=== PATIENT | female | born 1975 | race Caucasian/White ===

== ENCOUNTER 2016-10-27 22:20 | Emergency (ER) | payer SELFPAY ==
[2016-10-27 22:29] VITALS: BMI 35.1
[2016-10-28] MEDS ORDERED: KETOROLAC TROMETHAMINE 30 MG/1 ML VIAL IM ONE (00:35)
--- NOTE | 2016-10-28 00:53 | PDOC ---
[id number] No Limitations - History of Present Illness Initial Comments: 10/28/16 00:55 The patient is a 40 year old female presenting with family, with a significant past medical history of HTN and HLD, who presents to the emergency department with right shoulder pain for 2 weeks, chest pain and palpitations onset today. She describes her shoulder pain as ranging from mild to moderate, with radiation to her chest. She states that movement of the shoulder exacerbates her pain. She describes her chest pain as a pressure, ranging from mild to moderate. She denies radiation or modifying factors. She notes that she took 2 aleves today 200mg each. 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 She denies any kind of injury. The patient denies shortness of breath, headache and dizziness. Family history: Father and grandfather: CAD between ages 60-70 Allergies: None Past surgical history: Social history: No alcohol, tobacco or drug use reported <Chirag Catalan - Last Filed: 10/28/16 00:55> - General History Source: Patient Exam Limitations: No Limitations - History of Present Illness Initial Comments: 10/29/16 15:11 CORRECTION TO SCRIBE NOTE: There is no chest pressure. This is shoulder pain radiating into the chest and reproducible with arm movements. <Cresencio Interiano - Last Filed: 10/29/16 15:12> - General Chief Complaint: Chest Pain Stated Complaint: CHEST PAIN Time Seen by Provider: 10/27/16 23:27 Past History <Chirag Catalan - Last Filed: 10/28/16 00:55> - Past Medical History HTN: Yes Hypercholesterolemia: Yes - Immunization History Immunization Up to Date: Yes - Psycho/Social/Smoking Cessation Hx Anxiety: No Suicidal Ideation: No Smoking History: Never smoked Hx Alcohol Use: No Drug/Substance Use Hx: No Substance Use Type: None <Cresencio Interiano - Last Filed: 10/29/16 15:12> - Past Medical History Allergies/Adverse Reactions: Allergies Allergy/AdvReac Type Severity Reaction Status Date / Time No Known Allergies Allergy Verified 10/27/16 22:25 Home Medications: Ambulatory Orders Hydrochlorothiazide 50 mg PO DAILY 10/28/16 Naproxen [Naprosyn -] 500 mg PO BID PRN #20 tablet 10/28/16 Review of Systems - Review of Systems Able to Perform ROS?: Yes Comments:: 10/28/16 00:56 GENERAL/CONSTITUTIONAL: No fever or chills. No weakness. HEAD, EYES, EARS, NOSE AND THROAT: No change in vision. No ear pain or discharge. No sore throat. CARDIOVASCULAR: +Chest pain. No shortness of breath RESPIRATORY: No cough, wheezing, or hemoptysis. GASTROINTESTINAL: No nausea, vomiting, diarrhea or constipation. GENITOURINARY: No dysuria, frequency, or change in urination. MUSCULOSKELETAL: +Right shoulder pain. No joint or muscle swelling or pain. No neck or back pain. SKIN: No rash NEUROLOGIC: No headache, vertigo, loss of consciousness, or change in strength/ sensation. ENDOCRINE: No increased thirst. No abnormal weight change HEMATOLOGIC/LYMPHATIC: No anemia, easy bleeding, or history of blood clots. ALLERGIC/IMMUNOLOGIC: No hives or skin allergy. <Chirag Catalan - Last Filed: 10/28/16 00:55> *Physical Exam - Vital Signs Last Vital Signs Temp Pulse Resp BP Pulse Ox 98.0 F 77 18 135/96 98 10/27/16 22:25 10/27/16 22:25 10/27/16 22:25 10/27/16 22:25 10/27/16 22:25 - Physical Exam Comments: 10/28/16 00:56 GENERAL: Awake, alert, and fully oriented, in no acute distress HEAD: No signs of trauma, normocephalic, atraumatic EYES: PERRLA, EOMI, sclera anicteric, conjunctiva clear ENT: Auricles normal inspection, hearing grossly normal, nares patent, oropharynx clear without exudates. Moist mucosa NECK: Normal ROM, supple, no lymphadenopathy, JVD, or masses LUNGS: No distress, speaks full sentences, clear to auscultation bilaterally HEART: Regular rate and rhythm, normal S1 and S2, no murmurs, rubs or gallops, peripheral pulses normal and equal bilaterally. ABDOMEN: Soft, nontender, normoactive bowel sounds. No guarding, no rebound. No masses EXTREMITIES: Normal inspection, Normal range of motion, no edema. No clubbing or cyanosis. MUSCULOSKELETAL: +Tenderness to palpation right paraspinal neck and right medial portion of the scapula and anterior right shoulder and anterior axilla. Some tenderness to palpation along the sternum. Decreased range of motion of the right shoulder. NEUROLOGICAL: Cranial nerves II through XII grossly intact. Normal speech, normal gait, no focal sensorimotor deficits SKIN: Warm, Dry, normal turgor, no rashes or lesions noted. <Chirag Catalan - Last Filed: 10/28/16 00:55> - Vital Signs Last Vital Signs Temp Pulse Resp BP Pulse Ox 98.0 F 77 18 135/96 98 10/27/16 22:25 10/27/16 22:25 10/27/16 22:25 10/27/16 22:25 10/27/16 22:25 <Cresencio Interiano - Last Filed: 10/29/16 15:12> Heart Score/ECG Review - History History: Slightly suspicious - Electrocardiogram EKG: Normal - Age Age: </= 45 - Risk Factors Risk Factors Heart Score: Yes Hx Hypercholesterolemia, Yes Hx Hypertension Based on the list above the patient has:: 1-2 risk factors #1 ECG reviewed & interpreted by me at: 00:40 10/28/16 00:53 NSR 66 T wave flat III, no std/kevan, normal axis, normal intervals, QTC 440 msec <Cresencio Interiano - Last Filed: 10/29/16 15:12> ED Treatment Course - LABORATORY CBC & Chemistry Diagram: 10/28/16 00:46 10/28/16 00:46 <Chirag Catalan - Last Filed: 10/28/16 00:55> - LABORATORY CBC & Chemistry Diagram: 10/28/16 00:46 10/28/16 00:46 - RADIOLOGY Radiology Studies Ordered: Category Date Time Status SHOULDER-RIGHT [RAD] Stat Radiology 10/28/16 00:35 Ordered <Cresencio Interiano - Last Filed: 10/29/16 15:12> Medical Decision Making - Medical Decision Making 10/28/16 00:49 A portion of this note was documented by scribe services under my direction. I have reviewed the details of the note, within reason, and agree with the documentation with the following case summary and management plan written by me. Patient treated in the ED. Nursing notes are reviewed and incorporated into the medical decision-making. Vital signs reviewed. Peripheral IV access obtained by the nurse, laboratory studies are drawn and sent, reviewed and interpreted by myself. 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 Patient reports that movement of her right shoulder exacerbates the pain. She denies short of breath, diaphoresis, nausea, vomiting. Patient was concerned for potential heart has her father had a heart attack in his 70s. Patient's physical exam is consistent with musculoskeletal. EKG is normal. We' ll trial Toradol and reassess. We'll give her referral to an orthopedist. 10/28/16 02:01 CBC, BMP 10/28/16 00:46 10/28/16 00:46 CMP Sodium 140 mmol/L (136-145) 10/28/16 00:46 Potassium 3.1 mmol/L (3.5-5.1) L 10/28/16 00:46 Chloride 99 mmol/L (98-107) 10/28/16 00:46 Carbon Dioxide 31 mmol/L (21-32) 10/28/16 00:46 Anion Gap 10 (8-16) 10/28/16 00:46 BUN 18 mg/dL (7-18) 10/28/16 00:46 Creatinine 0.8 mg/dL (0.55-1.02) 10/28/16 00:46 Creat Clearance w eGFR > 60 (>60) 10/28/16 00:46 Random Glucose 97 mg/dL (74-106) 10/28/16 00:46 Calcium 9.0 mg/dL (8.5-10.1) 10/28/16 00:46 Total Bilirubin 0.2 mg/dL (0.2-1.0) 10/28/16 00:46 AST 20 U/L (15-37) 10/28/16 00:46 ALT 32 U/L (12-78) 10/28/16 00:46 Alkaline Phosphatase 103 U/L (45-117) 10/28/16 00:46 Creatine Kinase 102 IU/L (26-192) 10/28/16 00:46 Troponin I < 0.02 ng/ml (0.00-0.05) 10/28/16 00:46 Total Protein 7.6 g/dl (6.4-8.2) 10/28/16 00:46 Albumin 3.9 g/dl (3.4-5.0) 10/28/16 00:46 Serum , Qual Negative 10/28/16 00:46 Oral potassium repletion ordered. Pt reports feeling better after IM toradol. Awaiting Xray of R shoulder. Case signed out to Dr. Ferrell for further management and disposition. However, the patient is able to be discharged with ortho follow up. The patient and patient's daughter is at bedside and agrees with plan. <Cresencio Interiano - Last Filed: 10/29/16 15:12> *DC/Admit/Observation/Transfer - Attestations Scribe Attestion: 10/28/16 00:56 Documentation prepared by Chirag Catalan, acting as manager medical writing for Cresencio Interiano MD <Chirag Catalan - Last Filed: 10/28/16 00:55> - Discharge Dispostion Admit: No <Cresencio Interiano - Last Filed: 10/29/16 15:12> Diagnosis at time of Disposition: Shoulder pain, right Qualifiers: Chronicity: acute Qualified Code(s): M25.511 - Pain in right shoulder - Discharge Dispostion Disposition: TRANSFER ACUTE CARE/OTHER HOSP Condition at time of disposition: Improved - Prescriptions Prescriptions: Naproxen [Naprosyn -] 500 mg PO BID PRN #20 tablet PRN Reason: Shoulder Pain - Referrals Referrals: Hipolito Spence MD [Staff Physician] - - Patient Instructions Printed Discharge Instructions: DI for Shoulder Pain Additional Instructions: Take 500 mg naproxen every 12 hours as needed for pain. At this time, I do not think that this is her heart and I suspect that this is more like her shoulder. This may be the results because of repetitive motion of your right shoulder. It is important to take it easy on her right shoulder. Take the medication as prescribed. You will likely benefit from physical therapy. Please call and schedule appointment with an orthopedist. Print Language: ARABIC
[2016-10-28] MEDS ORDERED: KETOROLAC TROMETHAMINE 30 MG/1 ML VIAL ONE (00:58)
[2016-10-28 01:00] LABS: BASOPHIL 0.4 % (0-2.0); EOSINOPHIL 2.3 % (0-4.5); MCH 30.7 pg (25.7-33.7); MCHC 33.7 g/dl (32.0-36.0); MEAN CELL VOLUME 91.2 fl (80-96); MEAN PLT VOLUME 8.3 fl (7.5-11.1); NEUTROPHILS 54.3 % (42.8-82.8); PLATELET COUNT 282 K/MM3 (134-434); RDW 12.8 % (11.6-15.6); WHITE BLOOD COUNT 6.9 K/mm3 (4.0-10.0)
[2016-10-28 01:20] LABS: ALBUMIN 3.9 g/dl (3.4-5.0); ANION GAP 10 (8-16); BILIRUBIN,TOTAL 0.2 mg/dL (0.2-1.0); CO2 31 mmol/L (21-32); CREATININE 0.8 mg/dL (0.55-1.02); GLUCOSE,RANDOM 97 mg/dL (74-106); SGOT/AST 20 U/L (15-37); SGPT/ALT 32 U/L (12-78); TOT PROT 7.6 g/dl (6.4-8.2)
[2016-10-28 01:23] LABS: ALK PHOS 103 U/L (45-117); TROPONIN I < 0.02 ng/ml (0.00-0.05)
[2016-10-28] MEDS ORDERED: POTASSIUM CHLORIDE TABS 20 MEQ TABLET.ER (FP) PO ONE ×2 (01:46→02:28)
[2016-10-28 03:39] VITALS: BP 130/88; PULSE 72; TEMP 98.2
--- NOTE | 2016-10-28 16:13 | EKG ---
Test Reason : Blood Pressure : / mmHG Vent. Rate : 066 BPM Atrial Rate : 066 BPM P-R Int : 202 ms QRS Dur : 088 ms QT Int : 420 ms P-R-T Axes : 043 060 045 degrees QTc Int : 440 ms NORMAL SINUS RHYTHM NORMAL ECG NO PREVIOUS ECGS AVAILABLE Confirmed by ANJUM VELASQUEZ MD ([id number]) on 10/28/2016 4:13:06 PM Referred By: Confirmed By:ANJUM VELASQUEZ MD
== END 2016-10-28 03:39 | disposition short-term general hospital (02) ==
LOC: JER 22:20
PROC: 3E0233Z Introduction of Anti-inflammatory into Muscle, Percutaneous Approach (ICD-10-PCS; principal; 2016-10-27)
DX: M25.511 Pain in right shoulder (principal); I10 Essential (primary) hypertension; E78.00 Pure hypercholesterolemia, unspecified
CPT/HCPCS: 36415; 73030-TC-RT; 80053; 82550; 84484; 84703; 85025; 93005; 93010; 99282-25

== ENCOUNTER 2017-03-16 22:12 | Emergency (ER) | payer SELFPAY ==
[2017-03-16 22:31] VITALS: BP 148/97; PULSE 57; TEMP 98.1; BMI 30.7
[2017-03-17] MEDS ORDERED: LIDOCAINE 1%/EPI 1:100000 (20 ML MULTI DOSE VIAL) INF ONE (00:20)
--- NOTE | 2017-03-17 00:30 | PDOC ---
History of Present Illness - General Chief Complaint: Abscess Boil Stated Complaint: PAIN, ACUTE Time Seen by Provider: 03/16/17 23:55 History Source: Patient, Family Exam Limitations: Language Barrier - History of Present Illness Initial Comments: 03/17/17 00:23 41yo Female patient w/ PmHx: HTN, Boils, presents to ED c/o boil to upper back x 1 month, worsened this past week. Patient states approximately 3 years ago, experience similar episode and has boil "removed" but returned in same spot. She denies fever, CP, Diff breathing, rash, or any other complaints at this time. Timing/Duration: reports: constant, getting worse Severity: Yes: moderate Location: reports: torso Respiratory Risk Factors: denies: no cause identified, exposure to illness, exposure to allergen, foods, insect bite, insect sting, medications, pollen, soaps, other Modifying Factors: worse with: antihistamine, calamine lotion, prednisone, scratching, topical steriods, other Associated Symptoms: denies: denies symptoms, blisters, change in skin texture, edema, fever, flushing, headache, hives, jaundice, malaise, nasal congestion, numbness, pallor, paresthesia, petechiae, rash, sore throat, swelling/mass/lumps , tingling, other Past History - Past Medical History Allergies/Adverse Reactions: Allergies Allergy/AdvReac Type Severity Reaction Status Date / Time No Known Allergies Allergy Verified 03/16/17 22:29 Home Medications: Ambulatory Orders Hydrochlorothiazide 50 mg PO DAILY 10/28/16 Naproxen [Naprosyn -] 500 mg PO BID PRN #20 tablet 10/28/16 Cephalexin Monohydrate [Keflex -] 500 mg PO BID #20 capsule 03/17/17 Oxycodone HCl/Acetaminophen [Endocet 5-325 Tablet] 1 each PO Q6H PRN #20 tablet MDD 4 tab 03/17/17 Sulfamethoxazole/Trimethoprim [Bactrim Ds -] 1 tab PO BID #14 tablet 03/17/17 HTN: Yes Hypercholesterolemia: Yes - Surgical History Gastric Stapling: Yes (Gastric bypass) - Immunization History Immunization Up to Date: Yes - Psycho/Social/Smoking Cessation Hx Anxiety: No Suicidal Ideation: No Smoking History: Never smoked Have you smoked in the past 12 months: No Information on smoking cessation initiated: No Hx Alcohol Use: No Drug/Substance Use Hx: No Substance Use Type: None Review of Systems - Review of Systems Able to Perform ROS?: Yes Is the patient limited Czech proficient: No Integumentary: Yes: Lumps All Other Systems: Reviewed and Negative *Physical Exam - Vital Signs Last Vital Signs Temp Pulse Resp BP Pulse Ox 98.1 F 57 L 18 148/97 99 03/16/17 22:29 03/16/17 22:29 03/16/17 22:29 03/16/17 22:29 03/16/17 22:29 - Physical Exam General Appearance: Yes: Nourished, Appropriately Dressed. No: Apparent Distress, Mild Distress, Moderate Distress, Severe Distress Respiratory/Chest: positive: Lungs Clear, Normal Breath Sounds. negative: Chest Tender, Respiratory Distress, Accessory Muscle Use, Labored Respiration, Rapid RR, Stridor, Wheezing Cardiovascular: positive: Regular Rhythm, Regular Rate Musculoskeletal: positive: Normal Inspection. negative: CVA Tenderness Extremity: positive: Normal Capillary Refill, Normal Inspection, Normal Range of Motion. negative: Pedal Edema, Swelling, Calf Tenderness, Erythema, Inflammation Integumentary: positive: Normal Color, Dry, Warm, Other (Boil to mid upper back. No erythema, non-fluctuant. + tenderness. Soft to palpation.) Neurologic: positive: principal strategist II-XII NML intact, Fully Oriented, Alert, Normal Mood/ Affect, Normal Response, Motor Strength 5/5 Procedures - Incision and Drainage I&D Site: Right: Other (Upper back) Betadine cleansed: Yes Anesthesia: 1% Lidocaine Volume(ml): 3 Blade Size: 11 Attempts: 1 Iodinated Packin/4 in Plain Packing: No Complications: none Dressing: Yes Progress: 03/17/17 01:43 Patient tolerated procedure poorly. *DC/Admit/Observation/Transfer Diagnosis at time of Disposition: Abscess of upper back excluding scapular region - Discharge Dispostion Disposition: HOME Condition at time of disposition: Improved Admit: No - Prescriptions Prescriptions: Sulfamethoxazole/Trimethoprim [Bactrim Ds -] 1 tab PO BID #14 tablet Oxycodone HCl/Acetaminophen [Endocet 5-325 Tablet] 1 each PO Q6H PRN #20 tablet MDD 4 tab PRN Reason: Severe Pain Cephalexin Monohydrate [Keflex -] 500 mg PO BID #20 capsule - Referrals Referrals: Antwon Archer MD [Staff Physician] - - Patient Instructions Printed Discharge Instructions: DI for Incision and Drainage of a Skin Abscess Additional Instructions: Follow up with Dr. Archer (Surgery) regarding todays visit. Call to schedule appointment. Take medications as prescribed. Endocet for severe pain. Do not drink alcohol, drive, or operate heavy machinery while taking Endocet. Return in 2 days for removal of wick or follow up with your primary care provider as discussed with you and your daughter. Print Language: KISWAHILI
[2017-03-17] MEDS ORDERED: LIDOCAINE HCL 1%, 10 MG/ML (20ML VIAL) ONE (01:06)
[2017-03-17] MEDS ORDERED: LIDOCAINE HCL 1%, 10 MG/ML (50 mL VIAL) INF ONE (01:07)
--- NOTE | 2017-03-17 01:43 | PDOC ---
*Physical Exam - Vital Signs Last Vital Signs Temp Pulse Resp BP Pulse Ox 98.1 F 57 L 18 148/97 99 03/16/17 22:29 03/16/17 22:29 03/16/17 22:29 03/16/17 22:29 03/16/17 22:29 ED Treatment Course - Medications Given in the ED: ED Medications Discontinued Medications Generic Name Dose Route Start Last Admin Trade Name Freq PRN Reason Stop Dose Admin Lidocaine HCl 20 ml 03/17/17 01:07 03/17/17 01:13 Xylocaine 1% INF 03/17/17 01:08 20 ml ONCE ONE Administration Lidocaine/Epinephrine 20 ml 03/17/17 00:20 03/17/17 01:07 Xylocaine 1%-Epi 1:100,000 INF 03/17/17 00:21 1 bottle ONCE ONE Administration Medical Decision Making - Medical Decision Making 03/17/17 01:42 agree with care from IT APPLICATION DEVELOPMENT MANAGER Taiwo *DC/Admit/Observation/Transfer Diagnosis at time of Disposition: Abscess of upper back excluding scapular region - Prescriptions Prescriptions: Sulfamethoxazole/Trimethoprim [Bactrim Ds -] 1 tab PO BID #14 tablet Oxycodone HCl/Acetaminophen [Endocet 5-325 Tablet] 1 each PO Q6H PRN #20 tablet MDD 4 tab PRN Reason: Severe Pain Cephalexin Monohydrate [Keflex -] 500 mg PO BID #20 capsule - Referrals Referrals: Antwon Archer MD [Staff Physician] - - Patient Instructions Printed Discharge Instructions: DI for Incision and Drainage of a Skin Abscess Additional Instructions: Follow up with Dr. Archer (Surgery) regarding todays visit. Call to schedule appointment. Take medications as prescribed. Endocet for severe pain. Do not drink alcohol, drive, or operate heavy machinery while taking Endocet. Return in 2 days for removal of wick or follow up with your primary care provider as discussed with you and your daughter. Print Language: SINHALA
[2017-03-17] MEDS ORDERED: CEPHALEXIN MONOHYDRATE 500 MG CAPSULE (UD) PO ONE (01:49)
[2017-03-17] MEDS ORDERED: IBUPROFEN 600 MG TABLET (FP) PO ONE ×2 (01:49→01:57)
[2017-03-17] MEDS ORDERED: SULFAMETHOXAZOLE/TRIMETHOPRIM 800MG/160MG D.S. TABLET PO ONE (01:49)
[2017-03-17] MEDS ORDERED: CEPHALEXIN MONOHYDRATE 250 MG CAPSULE (FP) ONE (01:56)
[2017-03-17] MEDS ORDERED: SULFAMETHOXAZOLE/TRIMETHOPRIM 800MG/160MG D.S. TABLET ONE (01:56)
== END 2017-03-17 02:09 ==
LOC: JER 22:12
CPT/HCPCS: 99281-25

== ENCOUNTER 2017-03-18 22:40 | Emergency (ER) | payer SELFPAY ==
[2017-03-18 22:53] VITALS: BP 130/82; PULSE 71; TEMP 98.4; BMI 30.7
--- NOTE | 2017-03-18 23:34 | PDOC ---
History of Present Illness - General Chief Complaint: Revisit,Wound Recheck Stated Complaint: ER REVIST Time Seen by Provider: 03/18/17 23:17 History Source: Patient Exam Limitations: No Limitations - History of Present Illness Initial Comments: 03/18/17 23:35 41-year-old female with no medical history presents to the emergency department for wound check to the upper back after an I&D 2 days ago. Patient denies any fever, chills, nausea/vomiting, pain, increased drainage from I&D site. Patient denies any other complaints. Severity: mild Past History - Past Medical History Allergies/Adverse Reactions: Allergies Allergy/AdvReac Type Severity Reaction Status Date / Time No Known Allergies Allergy Verified 03/18/17 22:53 Home Medications: Ambulatory Orders Hydrochlorothiazide 50 mg PO DAILY 10/28/16 Naproxen [Naprosyn -] 500 mg PO BID PRN #20 tablet 10/28/16 Cephalexin Monohydrate [Keflex -] 500 mg PO BID #20 capsule 03/17/17 Oxycodone HCl/Acetaminophen [Endocet 5-325 Tablet] 1 each PO Q6H PRN #20 tablet MDD 4 tab 03/17/17 Sulfamethoxazole/Trimethoprim [Bactrim Ds -] 1 tab PO BID #14 tablet 03/17/17 HTN: Yes Hypercholesterolemia: Yes - Surgical History Gastric Stapling: Yes (Gastric bypass) - Immunization History Immunization Up to Date: Yes - Psycho/Social/Smoking Cessation Hx Anxiety: No Suicidal Ideation: No Smoking History: Never smoked Have you smoked in the past 12 months: No Information on smoking cessation initiated: No Hx Alcohol Use: No Drug/Substance Use Hx: No Substance Use Type: None Review of Systems - Review of Systems Able to Perform ROS?: Yes Comments:: 03/18/17 23:36 CONSTITUTIONAL: Absent: fever, chills, diaphoresis, generalized weakness, malaise, loss of appetite RESPIRATORY: Absent: cough, shortness of breath, dyspnea with exertion, orthopnea, wheezing, stridor, hemoptysis GASTROINTESTINAL: Absent: abdominal pain, abdominal distension, nausea, vomiting, diarrhea, constipation, melena, hematochezia MUSCULOSKELETAL: Absent: myalgia, arthralgia, joint swelling SKIN: Upper left back; wound checl I&D Absent: rash, itching, pallor HEMATOLOGIC/IMMUNOLOGIC: Absent: easy bleeding, easy bruising, lymphadenopathy, frequent infections Is the patient limited Bur[place]ian proficient: No *Physical Exam - Vital Signs Last Vital Signs Temp Pulse Resp BP Pulse Ox 98.4 F 71 18 130/82 98 03/18/17 22:50 03/18/17 22:50 03/18/17 22:50 03/18/17 22:50 03/18/17 22:50 - Physical Exam Comments: 03/18/17 23:36 GENERAL: Well developed, well nourished. Awake and alert. No acute distress. CARDIOVASCULAR: Regular rate and rhythm. No murmurs, rubs, or gallops. Distal pulses are 2+ and symmetric. PULMONARY: No evidence of respiratory distress. Lungs clear to auscultation bilaterally. No wheezing, rales or rhonchi. ABDOMINAL: Soft. Non-tender. Non-distended. No rebound or guarding. No organomegaly. Normoactive bowel sounds. MUSCULOSKELETAL Normal range of motion at all joints. No bony deformities or tenderness. No CVA tenderness. EXTREMITIES: No cyanosis. No clubbing. No edema. No calf tenderness. SKIN: 2cm horizontal incision with scant dry drainage Warm and dry. Normal capillary refill. No rashes. No jaundice. *DC/Admit/Observation/Transfer Diagnosis at time of Disposition: Wound check, abscess - Discharge Dispostion Disposition: HOME Condition at time of disposition: Stable Admit: No - Referrals Referrals: Deng Rees MD [Staff Physician] - - Patient Instructions Printed Discharge Instructions: Boil Additional Instructions: Warm compress Continue your antibiotics Return roxanne the ER for severe/persistent/worsening symptoms
== END 2017-03-18 23:53 | disposition home or self-care (01) ==
LOC: SUPCPDRO 22:40 → JER 22:40
DX: Z09 Encounter for follow-up examination after completed treatment for conditions other than malignant neoplasm (principal); L02.212 Cutaneous abscess of back [any part, except buttock and flank]; I10 Essential (primary) hypertension; E78.00 Pure hypercholesterolemia, unspecified
CPT/HCPCS: 99281-25

== ENCOUNTER 2017-03-21 13:49 | Emergency (ER) | payer SELFPAY ==
[2017-03-21 14:02] VITALS: BMI 29.9
--- NOTE | 2017-03-21 14:21 | PDOC ---
History of Present Illness - General Chief Complaint: Pain Stated Complaint: ABD PAIN Time Seen by Provider: 03/21/17 14:17 Past History - Past Medical History Allergies/Adverse Reactions: Allergies Allergy/AdvReac Type Severity Reaction Status Date / Time No Known Allergies Allergy Verified 03/21/17 13:54 Home Medications: Ambulatory Orders Hydrochlorothiazide 50 mg PO DAILY 10/28/16 Naproxen [Naprosyn -] 500 mg PO BID PRN #20 tablet 10/28/16 Cephalexin Monohydrate [Keflex -] 500 mg PO BID #20 capsule 03/17/17 Oxycodone HCl/Acetaminophen [Endocet 5-325 Tablet] 1 each PO Q6H PRN #20 tablet MDD 4 tab 03/17/17 Sulfamethoxazole/Trimethoprim [Bactrim Ds -] 1 tab PO BID #14 tablet 03/17/17 HTN: Yes Hypercholesterolemia: Yes - Surgical History Gastric Stapling: Yes (Gastric bypass) - Immunization History Immunization Up to Date: Yes - Psycho/Social/Smoking Cessation Hx Anxiety: No Suicidal Ideation: No Smoking History: Never smoked Have you smoked in the past 12 months: No Information on smoking cessation initiated: No Hx Alcohol Use: No Drug/Substance Use Hx: No Substance Use Type: None *Physical Exam - Vital Signs Last Vital Signs Temp Pulse Resp BP Pulse Ox 98.4 F 59 L 20 138/96 99 03/21/17 13:54 03/21/17 13:54 03/21/17 13:54 03/21/17 13:54 03/21/17 13:54 *DC/Admit/Observation/Transfer - Attestations Physician Attestion: 03/21/17 14:21 I, Dr. Wesley Kumar, attest that this document has been prepared under my direction and personally reviewed by me in its entirety. I further attest, that it accurately reflects all work, treatment, procedures and medical decision -making performed by me.
--- NOTE | 2017-03-21 15:57 | PDOC ---
History of Present Illness - General Chief Complaint: Pain Stated Complaint: ABD PAIN Time Seen by Provider: 03/21/17 14:17 - History of Present Illness Initial Comments: 03/21/17 16:22 Ms. Lorelei Young is a 41 year old female with a significant past medical history of gastric bypass who presents to the emergency department with a several hour history of severe abdominal pain. She says it began at noon and feels like someone is pressing or stabbing to her Right side as well as both shoulder blades. The patient denies chest pain, shortness of breath, headache and dizziness. Denies fever, chills, nausea, vomit, diarrhea and constipation. Denies dysuria, frequency, urgency and hematuria. Allergies: NKDA Past surgical history: Gastric bypass Social history: Denies Past History - Past Medical History Allergies/Adverse Reactions: Allergies Allergy/AdvReac Type Severity Reaction Status Date / Time No Known Allergies Allergy Verified 03/21/17 13:54 Home Medications: Ambulatory Orders Cephalexin Monohydrate [Keflex -] 500 mg PO BID #20 capsule 03/17/17 Sulfamethoxazole/Trimethoprim [Bactrim Ds -] 1 tab PO BID #14 tablet 03/17/17 Acetaminophen with Codeine [Acetaminophen-Codeine Solution] 5 ml PO ASDIR Ondansetron HCl [Zofran] 4 mg SL PRN #20 tablet 03/21/17 Oxycodone HCl/Acetaminophen [Percocet 5-325 mg Tablet] 1 tab PO Q6H #20 tablet MDD 4 tabs 03/21/17 HTN: Yes Hypercholesterolemia: Yes - Surgical History Gastric Stapling: Yes (Gastric bypass) - Immunization History Immunization Up to Date: Yes - Psycho/Social/Smoking Cessation Hx Anxiety: No Suicidal Ideation: No Smoking History: Never smoked Have you smoked in the past 12 months: No Information on smoking cessation initiated: No Hx Alcohol Use: No Drug/Substance Use Hx: No Substance Use Type: None Review of Systems - Review of Systems Comments:: 03/21/17 16:22 GENERAL/CONSTITUTIONAL: No fever or chills. No weakness. HEAD, EYES, EARS, NOSE AND THROAT: No change in vision. No ear pain or discharge. No sore throat. CARDIOVASCULAR: No chest pain or shortness of breath RESPIRATORY: No cough, wheezing, or hemoptysis. GASTROINTESTINAL: +Severe abdominal pain reported. No nausea, vomiting, diarrhea or constipation. GENITOURINARY: No dysuria, frequency, or change in urination. MUSCULOSKELETAL: No joint or muscle swelling or pain. No neck or back pain. SKIN: No rash NEUROLOGIC: No headache, vertigo, loss of consciousness, or change in strength/ sensation. ENDOCRINE: No increased thirst. No abnormal weight change HEMATOLOGIC/LYMPHATIC: No anemia, easy bleeding, or history of blood clots. ALLERGIC/IMMUNOLOGIC: No hives or skin allergy. *Physical Exam - Vital Signs Last Vital Signs Temp Pulse Resp BP Pulse Ox 98.4 F 59 L 20 138/96 99 03/21/17 13:54 03/21/17 13:54 03/21/17 13:54 03/21/17 13:54 03/21/17 13:54 - Physical Exam Comments: 03/21/17 16:22 GENERAL: Awake, alert, and fully oriented, in no acute distress HEAD: No signs of trauma, normocephalic, atraumatic EYES: PERRLA, EOMI, sclera anicteric, conjunctiva clear ENT: Auricles normal inspection, hearing grossly normal, nares patent, oropharynx clear without exudates. Moist mucosa NECK: Normal ROM, supple, no lymphadenopathy, JVD, or masses LUNGS: No distress, speaks full sentences, clear to auscultation bilaterally HEART: Regular rate and rhythm, normal S1 and S2, no murmurs, rubs or gallops, peripheral pulses normal and equal bilaterally. ABDOMEN: +Positive marcelino sign, rebound tenderness noted to abdomen, pain in R upper and lower quadrants. Soft, normoactive bowel sounds. No guarding. No masses EXTREMITIES: Normal inspection, Normal range of motion, no edema. No clubbing or cyanosis. NEUROLOGICAL: Cranial nerves II through XII grossly intact. Normal speech, normal gait, no focal sensorimotor deficits SKIN: Warm, Dry, normal turgor, no rashes or lesions noted. ED Treatment Course - LABORATORY CBC & Chemistry Diagram: 03/21/17 16:10 03/21/17 16:10 Medical Decision Making - Medical Decision Making 03/21/17 16:31 Patient presents in acute pain and is visibly uncomfortable writhing on bed. Concern for gall vs. kidney stone. *DC/Admit/Observation/Transfer Diagnosis at time of Disposition: Cholecystitis, Abscess of upper back excluding scapular region - Discharge Dispostion Disposition: HOME - Referrals Referrals: Chon Burgos MD [Staff Physician] - - Patient Instructions Printed Discharge Instructions: DI for Gallstones Additional Instructions: Please return if pain uncontrollable with prescription meds. - Attestations Physician Attestion: 03/21/17 16:35 I, Dr. Levi Lopez, attest that this document has been prepared under my direction and personally reviewed by me in its entirety. I further attest, that it accurately reflects all work, treatment, procedures and medical decision -making performed by me.
--- NOTE | 2017-03-21 16:13 | PDOC ---
Attending Attestation - Resident Resident Name: Levi Lopez - ED Attending Attestation I have performed the following: I have examined & evaluated the patient, The case was reviewed & discussed with the resident, I agree w/resident's findings & plan, Exceptions are as noted - HPI HPI: 03/21/17 18:32 41-year-old female with a history of a gastric bypass in the past year presents with epigastric pain. She denies fever or vomiting but does have pain that radiates to her scapular area associated with some nausea. She denies any chest pain or shortness of breath - Physicial Exam PE: 03/21/17 18:33 Slightly overweight 41-year-old female presents with epigastric pain that started today. HEENT is within normal limits Lungs are clear to auscultation bilaterally CVS regular rate and rhythm S1, S2, no gallops, no rubs Abdomen - there is epigastric tenderness to palpation. Her lower quadrants are unremarkable Extremities full range of motion, no deformity Skin warm, dry. No evidence of cellulitis. There is a small pustule in her mid upper brought back. It appears to have had a recent incision Neuro-no gross focal neural deficits - Medical Decision Making 03/21/17 18:37 41-year-old female who had all abdominal ultrasound that showed evidence of cholecystitis. At this time. She has no fever, her CBC and chemistries are essentially unremarkable. She is not vomiting. We'll discuss with her the option for outpatient follow-up will be sent home with medications. Case discussed with the resident and the plan is to send her home.
[2017-03-21] MEDS ORDERED: morphine CARPU-JECT 4 MG/1 ML DISP.SYRIN IVPUSH ONE (16:15)
[2017-03-21 16:32] LABS: BASOPHIL 0.3 % (0-2.0); EOSINOPHIL 0.3 % (0-4.5); MCHC 33.4 g/dl (32.0-36.0); MEAN CELL VOLUME 92.7 fl (80-96); MEAN PLT VOLUME 8.3 fl (7.5-11.1); NEUTROPHILS 82.5 % (42.8-82.8); PLATELET COUNT 298 K/MM3 (134-434); RDW 13.3 % (11.6-15.6)
[2017-03-21] MEDS ORDERED: morphine CARPU-JECT 10 MG/1 ML DISP.SYRIN ONE (16:36)
[2017-03-21 17:02] LABS: ALBUMIN 3.5 g/dl (3.4-5.0); ANION GAP 9 (8-16); CALCIUM 9.4 mg/dL (8.5-10.1); CO2 28 mmol/L (21-32); CREATININE 0.7 mg/dL (0.55-1.02); GLUCOSE,RANDOM 82 mg/dL (74-106); SGOT/AST 60 U/L (15-37); SGPT/ALT 61 U/L (12-78)
[2017-03-21 17:04] LABS: ALK PHOS 87 U/L (45-117); BILIRUBIN,TOTAL 0.5 mg/dL (0.2-1.0); TOT PROT 7.9 g/dl (6.4-8.2)
[2017-03-21 17:07] LABS: URINE APPEARANCE SLCLOUDY; URINE BILIRUBIN NEGATIVE (NEGATIVE); URINE BLOOD NEGATIVE (NEGATIVE); URINE COLOR YELLOW; URINE GLUCOSE (UA) NEGATIVE (NEGATIVE); URINE KETONE 1+ (NEGATIVE); URINE LEUK ESTERASE NEGATIVE (NEGATIVE); URINE NITRITE NEGATIVE (NEGATIVE); URINE PROTEIN NEGATIVE (NEGATIVE); URINE UROBILINOGEN NEGATIVE mg/dL (0.2-1.0)
[2017-03-21 19:33] VITALS: BP 131/78; PULSE 62; TEMP 97.9
--- NOTE | 2017-03-22 19:05 | EKG ---
Test Reason : Blood Pressure : / mmHG Vent. Rate : 059 BPM Atrial Rate : 059 BPM P-R Int : 168 ms QRS Dur : 086 ms QT Int : 428 ms P-R-T Axes : 033 057 038 degrees QTc Int : 423 ms SINUS BRADYCARDIA OTHERWISE NORMAL ECG WHEN COMPARED WITH ECG OF 28-OCT-2016 00:39, T WAVES ARE NOW INVERTED IN V2 REPEAT EKG IF CLINICALLY INDICATED Confirmed by VITALIY HUNTER MD ([id number] on 03/22/2017 7:05:22 PM Referred By: Confirmed By:VITALIY HUNTER MD
== END 2017-03-21 19:32 | disposition home or self-care (01) ==
LOC: JER 13:49
PROC: 3E033NZ Introduction of Analgesics, Hypnotics, Sedatives into Peripheral Vein, Percutaneous Approach (ICD-10-PCS; principal; 2017-03-21)
DX: K80.10 Calculus of gallbladder with chronic cholecystitis without obstruction (principal); Z98.84 Bariatric surgery status
CPT/HCPCS: 36415; 76705-TC; 80053; 81003; 83690; 84703; 85025; 93005; 93010; 99283-25

== ENCOUNTER 2017-04-04 10:55 | Inpatient (IN) | payer OTHER ==
[2017-04-04 11:17] VITALS: BMI 29.9
[2017-04-04 11:58] LABS: URINE APPEARANCE SLCLOUDY; URINE BILIRUBIN NEGATIVE (NEGATIVE); URINE BLOOD NEGATIVE (NEGATIVE); URINE COLOR DKYELLOW; URINE GLUCOSE (UA) NEGATIVE (NEGATIVE); URINE KETONE NEGATIVE (NEGATIVE); URINE LEUK ESTERASE NEGATIVE (NEGATIVE); URINE NITRITE NEGATIVE (NEGATIVE); URINE PROTEIN NEGATIVE (NEGATIVE); URINE UROBILINOGEN NEGATIVE mg/dL (0.2-1.0)
--- NOTE | 2017-04-04 12:08 | PDOC ---
History of Present Illness - General Chief Complaint: Pain, Acute Stated Complaint: BACK PAIN Time Seen by Provider: 04/04/17 11:27 History Source: Patient Exam Limitations: No Limitations - History of Present Illness Initial Comments: 04/04/17 12:08 CHIEF COMPLAINT: Abdominal pain HISTORY OF PRESENT ILLNESS: This is a 41 year old female with a history of HTN, HLD, and gastric bypass surgery at [facility] in December of this year, initially seen here on 03/21 for RUQ pain and syncope. At that time, she had an ultrasound which was interpreted as choleystitis. The note from this visit indicates that because she had a normal CBC and LFTs at that time and was not vomiting, she was discharged for outpatient followup. She returns today with worsening pain not controlled with oxycodone, inability to eat, nausea, and subjective fevers/chills. Of note, the patient was treated with Bactrim/Keflex for back abscess just prior to her initial presentation. REVIEW OF SYSTEMS: GENERAL/CONSTITUTIONAL: Subjective fevers/chills. HEAD, EYES, EARS, NOSE AND THROAT: No change in vision. No ear pain or discharge. No sore throat. CARDIOVASCULAR: No chest pain or palpitations. RESPIRATORY: No cough, wheezing, or shortness of breath. GASTROINTESTINAL: See HPI. GENITOURINARY: No dysuria, frequency, or change in urination. MUSCULOSKELETAL: No joint or muscle swelling or pain. No neck or back pain. SKIN: No rash or easy bruising. NEUROLOGIC: No headache, vertigo, loss of consciousness, or loss of sensation. PSYCHIATRIC: No depression or anxiety. ENDOCRINE: No increased thirst. No abnormal weight change. HEMATOLOGIC/LYMPHATIC: No anemia, easy bleeding, or history of blood clots. ALLERGIC/IMMUNOLOGIC: No hives or skin allergy. No latex allergy. PHYSICAL EXAM: GENERAL: The patient is awake, alert, and fully oriented, in no acute distress. HEAD: Normal with no signs of trauma. ENT: Pupils equal, round and reactive to light, extraocular movements intact, sclera anicteric, conjunctiva clear. Neck supple. LUNGS: Clear to auscultation bilaterally. Normal excursion. No respiratory distress or use of accessory muscles. CV: RRR, S1/S2, no MRG. Cap refill < 2 sec. ABDOMEN: Soft, non-distended, RUQ tenderness to gentle palpation. EXTREMITIES: Normal range of motion, no edema. NEUROLOGICAL: Normal speech, normal gait. CN II-XII grossly intact. PSYCH: Normal mood, normal affect. SKIN: Warm, dry, normal turgor, no rashes or lesions noted. Past History - Past Medical History Allergies/Adverse Reactions: Allergies Allergy/AdvReac Type Severity Reaction Status Date / Time No Known Allergies Allergy Verified 04/04/17 11:17 Home Medications: Ambulatory Orders Oxycodone HCl/Acetaminophen [Percocet 5-325 mg Tablet] 1 tab PO Q6H #20 tablet MDD 4 tabs 03/21/17 HTN: Yes Hypercholesterolemia: Yes - Surgical History Gastric Stapling: Yes (Gastric bypass) - Immunization History Immunization Up to Date: Yes - Psycho/Social/Smoking Cessation Hx Anxiety: No Suicidal Ideation: No Smoking History: Never smoked Have you smoked in the past 12 months: No Information on smoking cessation initiated: No Hx Alcohol Use: No Drug/Substance Use Hx: No Substance Use Type: None *Physical Exam - Vital Signs Last Vital Signs Temp Pulse Resp BP Pulse Ox 98.3 F 62 18 132/95 100 04/04/17 11:15 04/04/17 11:15 04/04/17 11:15 04/04/17 11:15 04/04/17 11:15 Heart Score/ECG Review - ECG Intrepretation Comment:: 04/04/17 13:46 NSR at 60bpm ED Treatment Course - LABORATORY CBC & Chemistry Diagram: 04/04/17 12:35 04/04/17 12:35 - ADDITIONAL ORDERS Additional order review: Laboratory Results 04/04/17 11:38 Urine Color Dkyellow Urine Appearance Slcloudy Urine pH 7.0 D Urine Protein Negative Urine Glucose (UA) Negative Urine Ketones Negative Urine Blood Negative Urine Nitrite Negative Urine Bilirubin Negative Urine Urobilinogen Negative Ur Leukocyte Esterase Negative Urine HCG, Qual Negative Medical Decision Making - Medical Decision Making 04/04/17 13:22 A/P: 41 year old female with RUQ pain, previously diagnosed with cholecystitis. 1. Labs including CBC, comp, lipase 2. Repeat RUQ u/s 3. Discussed with surgery - will evaluate in Ed 4. Zofran for nausea 5. Patient took oxycodone just prior to arrival in ED 04/04/17 14:56 U/s reviewed: cholelithiasis with no evidence of acute cholecystitis. *DC/Admit/Observation/Transfer Diagnosis at time of Disposition: Biliary colic, Chills, Unable to eat solid foods, Chronic cholecystitis - Discharge Dispostion Admit: Yes
[2017-04-04] MEDS ORDERED: ONDANSETRON 4 MG/2 ML VIAL IVPUSH ONE (12:20)
[2017-04-04] MEDS ORDERED: ONDANSETRON 4 MG/2 ML VIAL ONE (12:43)
[2017-04-04 12:47] LABS: BASOPHIL 0.7 % (0-2.0); EOSINOPHIL 1.1 % (0-4.5); MCHC 33.4 g/dl (32.0-36.0); MEAN PLT VOLUME 8.5 fl (7.5-11.1); NEUTROPHILS 62.7 % (42.8-82.8); PLATELET COUNT 285 K/MM3 (134-434); RDW 13.3 % (11.6-15.6); WHITE BLOOD COUNT 6.4 K/mm3 (4.0-10.0)
[2017-04-04 13:20] LABS: ALBUMIN 4.1 g/dl (3.4-5.0); ALK PHOS 82 U/L (45-117); ANION GAP 7 (8-16); BILIRUBIN,TOTAL 0.3 mg/dL (0.2-1.0); CALCIUM 9.2 mg/dL (8.5-10.1); CO2 28 mmol/L (21-32); CREATININE 0.5 mg/dL (0.55-1.02); GLUCOSE,RANDOM 78 mg/dL (74-106); SGOT/AST 15 U/L (15-37); SGPT/ALT 37 U/L (12-78); TOT PROT 7.7 g/dl (6.4-8.2)
[2017-04-04] MEDS ORDERED: SODIUM CHLORIDE 1,000 ML IV SCH (13:45)
[2017-04-04] MEDS ORDERED: cefOXitin SODIUM 2 GM VIAL (RESTRICTED TO ID) IVPB ONE (15:14)
[2017-04-04] MEDS ORDERED: CEFOXITIN SODIUM 2 GM in DEXTROSE 5%-WATER - 100 ML IVPB ONE (15:30)
[2017-04-04] MEDS ORDERED: ONDANSETRON 4 MG/2 ML VIAL IVPB PRN (15:46)
[2017-04-04] MEDS ORDERED: HYDROmorphone HCL CARPU-JECT 1 MG/1 ML DISP.SYRIN IVPB PRN (15:47)
--- NOTE | 2017-04-04 15:58 | CONSULT ---
Consult Consult Specialty:: General Surgery Referred by:: Irasema Charles Reason for Consultation:: possible cholecystitis - History of Present Illness Chief Complaint: epigastric, RUQ and back pain associated with nausea, chills History of Present Illness: 41yo obese F s/p lap sleeve gastrectomy January 03 (3m ago), has lost 26 lbs and was recently seen in ER for I&D of right upper back infected cyst. After wound check, also in ER, few days later developed acute epigastric/chest and back pain, with RUQ pain, and returned to ER, where US showed likely cholecystitis, but wbc was 10, she was afebrile, and LFTs were not significantly elevated, and she was discharged with referral to surgeon. She completed her abx course (Keflex 500mg bid and Bactrim bid) for abscess but had trouble getting appt because of insurance. She returned today with recurrent symptoms, including intermittent nausea but no vomiting in last two weeks, pain worst on Tuesday with back and epigastric/RUQ pain, headache and chills with pain and nausea, and diarrhea. Today, she took Percocet at home, but it did not help the pain, so she called an ambulance. Her pain is much less after pain meds in ER. In ER, she is afebrile, wbc 6, LFTs normal, lipase normal. US was repeated showing multiple small stones but no acute cholecystitis, suggestive of having passed a stone, perhaps. She is still RUQ tender mildly and with some nausea. Surgery is consulted regarding possible need for cholecystectomy. - History Source History Provided By: Patient, Family Member, Medical Record Limitations to Obtaining History: Language Barrier (Gu[place]an - pt's niece interpreted at pt's request) - Past Medical History Cardio/Vascular: Yes: HTN, Hyperlipdemia Gastrointestinal: Yes: Other (obesity) Hepatobiliary: Yes: Cholelithiasis, Cholecystitis (03/21/17) ...: No ...Para: 3 ( x3) - Past Surgical History Past Surgical History: Yes: Bariatric Surgery (laparoscopic sleeve gastrectomy [facility] Dr. 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 denies: Fever, Loss of Appetite Eyes: reports: Other (wears glasses). denies: Recent Change in Vision HENT: denies: Difficult Swallowing, Throat Pain Neck: denies: Swollen Glands, Tenderness Cardiovascular: reports: Chest Pain (had on 03/21 but not since). denies: Palpitations Respiratory: reports: SOB (when pain hits). denies: Cough Gastrointestinal: reports: Abdominal Pain (with hpi), Diarrhea (with hpi), Nausea (with hpi). denies: Constipation, Vomiting Genitourinary: denies: Burning, Dysuria Musculoskeletal: reports: Back Pain (with hpi). denies: Joint Pain Integumentary: denies: Change in Color, Rash Neurological: reports: Headache (with pain/hpi). denies: Dizziness Endocrine: denies: Unexplained Weight Gain, Unexplained Weight Loss Psychiatric: denies: Anxiety, Depression Physical Exam Vital Signs: Vital Signs Temperature 98.3 F 04/04/17 11:15 Pulse Rate 62 04/04/17 11:15 Respiratory Rate 18 04/04/17 11:15 Blood Pressure 132/95 04/04/17 11:15 O2 Sat by Pulse Oximetry (%) 100 04/04/17 11:15 Constitutional: Yes: Well Nourished, No Distress, Calm Eyes: Yes: Conjunctiva Clear. No: Sclera Icterus HENT: Yes: Atraumatic, Normocephalic Neck: Yes: Supple, Trachea Midline Cardiovascular: Yes: Regular Rate and Rhythm. No: Murmur Respiratory: Yes: Regular, CTA Bilaterally Gastrointestinal: Yes: Normal Bowel Sounds, Soft, Abdomen, Obese (mildly), Tenderness (RUQ without rebound or guarding). No: Distention, Hernia, Tenderness, Epigastrium, Tenderness, Rebound ...Rectal Exam: Yes: Deferred Renal/: No: CVA Tenderness - Left, CVA Tenderness - Right Musculoskeletal: Yes: Back Pain (no spinal tenderness). No: Joint Swelling Extremities: No: Cool, Cyanosis Edema: No Peripheral Pulses WNL: Yes Integumentary: Yes: Other (right upper back with small healed scar, hyperpigmentation, mild tenderness over likely sebaceous cyst with no s/s infection currently). No: Jaundice, Rash Neurological: Yes: Alert, Oriented Psychiatric: Yes: Alert, Oriented Labs: CBC, BMP 04/04/17 12:35 04/04/17 12:35 CMP Sodium 141 mmol/L (136-145) 04/04/17 12:35 Potassium 3.8 mmol/L (3.5-5.1) 04/04/17 12:35 Chloride 106 mmol/L (98-107) 04/04/17 12:35 Carbon Dioxide 28 mmol/L (21-32) 04/04/17 12:35 Anion Gap 7 (8-16) L 04/04/17 12:35 BUN 16 mg/dL (7-18) 04/04/17 12:35 Creatinine 0.5 mg/dL (0.55-1.02) L D 04/04/17 12:35 Creat Clearance w eGFR > 60 (>60) 04/04/17 12:35 Random Glucose 78 mg/dL (74-106) 04/04/17 12:35 Calcium 9.2 mg/dL (8.5-10.1) 04/04/17 12:35 Total Bilirubin 0.3 mg/dL (0.2-1.0) D 04/04/17 12:35 AST 15 U/L (15-37) D 04/04/17 12:35 ALT 37 U/L (12-78) D 04/04/17 12:35 Alkaline Phosphatase 82 U/L (45-117) 04/04/17 12:35 Total Protein 7.7 g/dl (6.4-8.2) 04/04/17 12:35 Albumin 4.1 g/dl (3.4-5.0) 04/04/17 12:35 Lipase 247 U/L (73-393) 04/04/17 12:35 wbc was 10 03/21/17, AST was 60 Imaging - Results Ultrasound: Report Reviewed, Image Reviewed (with radiologist - multiple small stones, no significant wall thickening or pericholecystic fluid today, cbd normal), Other (previous US also reviewed from 03/21/17) Problem List - Problems (1) Calculus of gallbladder with chronic cholecystitis without obstruction Assessment/Plan: recent acute cholecystitis with recurrence of symptoms but without cholecystitis by US today - likely passed stone earlier biliary colic with chronic cholecystitis admitted to medicine NPO/IVF until after surgery pain meds, antiemetics prn DVT prophylaxis IV antibiotics until postop discussed with patient R/B/A of laparoscopic cholecystectomy including but not limited to bleeding, infection, injury to nearby structures, bile duct injury, need for further procedures; alternatives include delayed or no surgery - risks include recurrence of cholecystitis, pancreatitis, cholangitis, sepsis, need for urgent procedure Pt wishes to proceed with operation and has signed informed consent for same Pt's niece interpreted [place]inean at patient's request Plan for surgery 1pm Tuesday04/05/17 anticipate resuming po postop (bariatric diet - frequent small meals, or full liquids also ok) will use liquid Tylenol and ibuprofen prn postop with narcotic for breakthrough only - pt prefers not to use Percocet unless necessary Code(s): K80.10 - CALCULUS OF GALLBLADDER W CHRONIC CHOLECYST W/O OBSTRUCTION (2) Obesity (BMI 30.0-34.9) Code(s): E66.9 - OBESITY, UNSPECIFIED (3) Status post bariatric surgery Assessment/Plan: s/p lap sleeve gastrectomy 01/03/17 spoke with pt's surgeon She had appt today (missed) - can see him in followup next 04/14 after 9am in office for 3m check Valery Huggins [place] (from [facility]) Code(s): Z98.84 - BARIATRIC SURGERY STATUS (4) Chills Code(s): R68.83 - CHILLS (WITHOUT FEVER)
[2017-04-04] MEDS: D5-1/2NS+20 MEQ KCL - 1,000 ML IV SCH (16:41)
--- NOTE | 2017-04-04 18:13 | HP ---
Admitting History and Physical - Primary Care Physician PCP: Jaime Peres - Admission History of Present Illness: 41 year old female with a history of HTN, HLD, and gastric bypass surgery at [facility] in December of this year, initially seen here on 03/21 for RUQ pain and syncope. At that time, she had an ultrasound showed cholecystitis. She returns today with worsening pain not controlled with oxycodone, inability to eat, nausea, and subjective fevers/chills. - Past Medical History Cardiovascular: Yes: HTN, Hyperlipdemia Gastrointestinal: Yes: Other (obesity) Hepatobiliary: Yes: Cholelithiasis, Cholecystitis (03/21/17) ...: No ...Para: 3 ( x3) - Past Surgical History Past Surgical History: Yes: Bariatric Surgery (laparoscopic sleeve gastrectomy [facility] Dr. 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 [employer] Home Medications - Allergies Allergies/Adverse Reactions: Allergies Allergy/AdvReac Type Severity Reaction Status Date / Time No Known Allergies Allergy Verified 04/04/17 11:17 - Home Medications Home Medications: Ambulatory Orders Oxycodone HCl/Acetaminophen [Percocet 5-325 mg Tablet] 1 tab PO Q6H #20 tablet MDD 4 tabs 03/21/17 Acetaminophen Oral Solution [Tylenol Oral Solution -] 640 mg PO Q6H PRN #120 ml 04/05/17 Ibuprofen Oral Suspension [Motrin Oral Suspension -] 400 - 600 mg PO Q6H PRN # 240 ml 04/05/17 Physical Examination Vital Signs: Vital Signs Temperature 98.3 F 04/04/17 11:15 Pulse Rate 62 04/04/17 11:15 Respiratory Rate 18 04/04/17 11:15 Blood Pressure 132/95 04/04/17 11:15 O2 Sat by Pulse Oximetry (%) 100 04/04/17 11:15 Constitutional: Yes: No Distress HENT: Yes: Atraumatic Neck: Yes: Supple Cardiovascular: Yes: Regular Rate and Rhythm Respiratory: Yes: CTA Bilaterally Gastrointestinal: Yes: Tenderness (ruq) Extremities: Yes: WNL Neurological: Yes: Alert, Oriented Problem List - Problems (1) Biliary colic Assessment/Plan: npo ivf iv abx prn pain meds surgery to see pt Code(s): K80.50 - CALCULUS OF BILE DUCT W/O CHOLANGITIS OR CHOLECYST W/O OBST (2) Cholecystitis Code(s): K81.9 - CHOLECYSTITIS, UNSPECIFIED Assessment/Plan Laboratory Tests 04/04/17 04/04/17 04/04/17 11:38 12:35 12:35 WBC 6.4 D RBC 4.16 Hgb 12.9 Hct 38.7 MCV 93.0 MCH 31.0 MCHC 33.4 RDW 13.3 Plt Count 285 MPV 8.5 Neutrophils % 62.7 D Lymphocytes % 29.5 D Monocytes % 6.0 Eosinophils % 1.1 D Basophils % 0.7 Sodium 141 Potassium 3.8 Chloride 106 Carbon Dioxide 28 Anion Gap 7 L BUN 16 Creatinine 0.5 L D Creat Clearance w eGFR > 60 Random Glucose 78 Calcium 9.2 Total Bilirubin 0.3 D AST 15 D ALT 37 D Alkaline Phosphatase 82 Total Protein 7.7 Albumin 4.1 Lipase 247 Urine Color Dkyellow Urine Appearance Slcloudy Urine pH 7.0 D Urine Protein Negative Urine Glucose (UA) Negative Urine Ketones Negative Urine Blood Negative Urine Nitrite Negative Urine Bilirubin Negative Urine Urobilinogen Negative Ur Leukocyte Esterase Negative Urine HCG, Qual Negative Active Medications Generic Name Dose Route Start Last Admin Trade Name Freq PRN Reason Stop Dose Admin Hydromorphone HCl 0.5 mg 04/04/17 15:47 Dilaudid Injection - IVPB Q4H PRN PAIN Sodium Chloride 1,000 mls @ 125 mls/hr 04/04/17 13:45 04/04/17 13:55 Normal Saline - IV 125 mls/hr ASDIR SIDRA Administration Potassium Chloride/Dextrose/Sod Cl 1,000 mls @ 83 mls/hr 04/04/17 15:45 16:41 D5-1/2ns+20 Meq Kcl - IV 83 mls/hr ASDIR SIDRA Administration Piperacillin Sod/Tazobactam 50 mls @ 100 mls/hr 04/04/17 18:15 Sod 3.375 gm/ Dextrose IVPB Q8H-IV SIDRA Ondansetron HCl 4 mg 04/04/17 15:46 Zofran Injection IVPB Q4H PRN NAUSEA AND/OR VOMITING
[2017-04-04] MEDS ORDERED: PIPERACILLIN/TAZOBACTAM 3.375 GM VIAL IVPB ONE (18:49)
[2017-04-04] MEDS ORDERED: DEXTROSE 5%-WATER - 50 ML IVPB ONE (18:50)
[2017-04-04] MEDS: PIPERACILLIN/TAZOB 3.375 GM 3.375 GM in DEXTROSE 5%-WATER - 50 ML IVPB SCH (18:59)
--- NOTE | 2017-04-04 21:27 | EKG ---
Test Reason : Blood Pressure : / mmHG Vent. Rate : 060 BPM Atrial Rate : 060 BPM P-R Int : 182 ms QRS Dur : 080 ms QT Int : 406 ms P-R-T Axes : 042 047 033 degrees QTc Int : 406 ms NORMAL SINUS RHYTHM NORMAL ECG WHEN COMPARED WITH ECG OF 21-MAR-2017 17:03, NO SIGNIFICANT CHANGE WAS FOUND Confirmed by LUISA ARRIAGA MD ([id number]) on 04/04/2017 9:26:38 PM Referred By: Confirmed By:LUISA ARRIAGA MD
[2017-04-05] MEDS ORDERED: PIPERACILLIN/TAZOBACTAM 3.375 GM VIAL IVPB ONE ×3 (02:33→17:58)
[2017-04-05] MEDS: PIPERACILLIN/TAZOB 3.375 GM 3.375 GM in DEXTROSE 5%-WATER - 50 ML IVPB SCH ×3 (02:40→18:01)
[2017-04-05] MEDS: D5-1/2NS+20 MEQ KCL - 1,000 ML IV SCH (06:39)
[2017-04-05 07:03] LABS: BASOPHIL 0.4 % (0-2.0); EOSINOPHIL 1.6 % (0-4.5); MCH 30.7 pg (25.7-33.7); MCHC 33.2 g/dl (32.0-36.0); MEAN CELL VOLUME 92.5 fl (80-96); MEAN PLT VOLUME 8.1 fl (7.5-11.1); NEUTROPHILS 78.3 % (42.8-82.8); PLATELET COUNT 224 K/MM3 (134-434); RDW 13.2 % (11.6-15.6); WHITE BLOOD COUNT 4.9 K/mm3 (4.0-10.0)
[2017-04-05 07:25] LABS: INR 1.11 (0.82-1.09); PROTHROMBIN TIME (PATIENT) 12.2 SEC (9.98-11.88)
[2017-04-05 07:45] LABS: ALBUMIN 3.7 g/dl (3.4-5.0); AMYLASE 53 U/L (25-115); ANION GAP 6 (8-16); BILIRUBIN,TOTAL 0.7 mg/dL (0.2-1.0); CO2 30 mmol/L (21-32); CREATININE 0.7 mg/dL (0.55-1.02); GLUCOSE,RANDOM 83 mg/dL (74-106); SGOT/AST 19 U/L (15-37); SGPT/ALT 31 U/L (12-78); TOT PROT 7.1 g/dl (6.4-8.2)
[2017-04-05 07:46] LABS: ALK PHOS 70 U/L (45-117)
[2017-04-05] MEDS ORDERED: DEXTROSE 5%-WATER - 50 ML IVPB ONE (09:32)
--- NOTE | 2017-04-05 11:31 | PN ---
Progress Note, Physician Chief Complaint: epigastric & RUQ pain radiating to back with nausea, chills History of Present Illness: Pt feels better this morning. No overnight events. Seen and examined in bed with daughter at bedside for Iraqi interpretation at her request. Some nausea , had med for it. No fevers. - Current Medication List Current Medications: Active Medications Hydromorphone HCl (Dilaudid Injection -) 0.5 mg IVPB Q4H PRN PRN Reason: PAIN Sodium Chloride (Normal Saline -) 1,000 mls @ 125 mls/hr IV ASDIR SIDRA Last Admin: 04/04/17 13:55 Dose: 125 mls/hr Potassium Chloride/Dextrose/Sod Cl (D5-1/2ns+20 Meq Kcl -) 1,000 mls @ 83 mls/ hr IV ASDIR SIDRA Last Admin: 04/05/17 06:39 Dose: 83 mls/hr Piperacillin Sod/Tazobactam (Sod 3.375 gm/ Dextrose) 50 mls @ 100 mls/hr IVPB Q8H-IV SIDRA Last Admin: 04/05/17 09:34 Dose: 100 mls/hr Ondansetron HCl (Zofran Injection) 4 mg IVPB Q4H PRN PRN Reason: NAUSEA AND/OR VOMITING - Objective Vital Signs: Vital Signs Temperature 98.1 F 04/05/17 09:00 Pulse Rate 60 04/05/17 09:00 Respiratory Rate 20 04/05/17 10:00 Blood Pressure 140/90 04/05/17 09:00 O2 Sat by Pulse Oximetry (%) 98 04/05/17 10:00 Vital Signs Period Temp Pulse Resp BP Sys/Mendoza Pulse Ox Last 24 Hr 98.1 F-98.4 F 58-66 14-20 109-140/66-93 98 Constitutional: Yes: Well Nourished, No Distress, Calm Eyes: Yes: Conjunctiva Clear. No: Sclera Icterus Gastrointestinal: Yes: Normal Bowel Sounds, Soft, Tenderness (RUQ without rebound or guarding). No: Distention, Tenderness, Epigastrium Integumentary: Yes: Other (healed scars x 6). No: Jaundice Neurological: Yes: Alert, Oriented Labs: CBC, BMP 04/05/17 06:00 04/05/17 06:00 INR, PTT INR 1.11 (0.82-1.09) 04/05/17 06:00 CMP Sodium 142 mmol/L (136-145) 04/05/17 06:00 Potassium 4.0 mmol/L (3.5-5.1) 04/05/17 06:00 Chloride 106 mmol/L (98-107) 04/05/17 06:00 Carbon Dioxide 30 mmol/L (21-32) 04/05/17 06:00 Anion Gap 6 (8-16) L 04/05/17 06:00 BUN 7 mg/dL (7-18) D 04/05/17 06:00 Creatinine 0.7 mg/dL (0.55-1.02) D 04/05/17 06:00 Creat Clearance w eGFR > 60 (>60) 04/05/17 06:00 Random Glucose 83 mg/dL (74-106) 04/05/17 06:00 Calcium 9.0 mg/dL (8.5-10.1) 04/05/17 06:00 Total Bilirubin 0.7 mg/dL (0.2-1.0) D 04/05/17 06:00 AST 19 U/L (15-37) D 04/05/17 06:00 ALT 31 U/L (12-78) 04/05/17 06:00 Alkaline Phosphatase 70 U/L (45-117) 04/05/17 06:00 Total Protein 7.1 g/dl (6.4-8.2) 04/05/17 06:00 Albumin 3.7 g/dl (3.4-5.0) 04/05/17 06:00 Total Amylase 53 U/L (25-115) 04/05/17 06:00 Lipase 173 U/L (73-393) 04/05/17 06:00 Problem List - Problems (1) Calculus of gallbladder with chronic cholecystitis without obstruction Assessment/Plan: recent acute cholecystitis with recurrence of symptoms but without cholecystitis by US - likely passed stone earlier biliary colic with chronic cholecystitis NPO/IVF until after surgery pain meds, antiemetics prn DVT prophylaxis IV antibiotics per ID - on Zosyn, had 3 doses so far for laparoscopic possible open cholecystectomy today anticipate resuming po postop (bariatric diet - frequent small meals, or full liquids also ok) will use liquid Tylenol and ibuprofen prn postop with narcotic for breakthrough only - pt prefers not to use Percocet unless necessary Code(s): K80.10 - CALCULUS OF GALLBLADDER W CHRONIC CHOLECYST W/O OBSTRUCTION (2) Obesity (BMI 30.0-34.9) Code(s): E66.9 - OBESITY, UNSPECIFIED (3) Status post bariatric surgery Assessment/Plan: s/p lap sleeve gastrectomy 01/03/17 spoke with pt's surgeon She missed appt this week - can see him in followup next 04/14 after 9am in office for 3m check Valery Huggins [place] (from [facility]) Code(s): Z98.84 - BARIATRIC SURGERY STATUS (4) Chills Code(s): R68.83 - CHILLS (WITHOUT FEVER)
[2017-04-05] MEDS ORDERED: LIDOCAINE HCL/PF 2% SDV 5ML VIAL ONE (13:09)
[2017-04-05] MEDS ORDERED: PROPOFOL 20 ML ONE (13:09)
[2017-04-05] MEDS ORDERED: ROCURONIUM BROMIDE 50 MG/5 ML VIAL ONE (13:10)
[2017-04-05] MEDS ORDERED: MIDAZOLAM HCL 2 MG/2 ML SINGLE DOSE VIAL ONE (13:10)
[2017-04-05] MEDS ORDERED: BUPIVACAINE HCL/PF 0.5% (5MG/ML) 10 ML VIAL ONE (13:27)
[2017-04-05] MEDS ORDERED: LIDOCAINE HCL 1%, 10 MG/ML (20ML VIAL) ONE (13:28)
[2017-04-05] MEDS ORDERED: DEXAMETHASONE SOD PHOSPHATE 4 MG/1 ML VIAL ONE (13:37)
--- NOTE | 2017-04-05 14:06 | CON.ID ---
Consult Consult Specialty:: infectious diseases Reason for Consultation:: choleycystitis - History of Present Illness Chief Complaint: abd pain History of Present Illness: 41 year old female with a history of HTN, HLD, and gastric bypass surgery at [facility] in December of this year, initially seen here on 03/21 for RUQ pain and syncope. At that time, she had an ultrasound showed cholecystitis. She returns today with worsening pain not controlled patient seen by surgery plan to take to the operating room - History Source History Provided By: Patient, Medical Record Limitations to Obtaining History: Language Barrier - Past Medical History Cardio/Vascular: Yes: HTN, Hyperlipdemia Gastrointestinal: Yes: Other (obesity) Hepatobiliary: Yes: Cholelithiasis, Cholecystitis (03/21/17) ...: No - Past Surgical History Past Surgical History: Yes: Bariatric Surgery (laparoscopic sleeve gastrectomy [facility] Dr. 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 [employer] Home Medications - Allergies Allergies/Adverse Reactions: Allergies Allergy/AdvReac Type Severity Reaction Status Date / Time No Known Allergies Allergy Verified 04/04/17 11:17 - Home Medications Home Medications: Ambulatory Orders Oxycodone HCl/Acetaminophen [Percocet 5-325 mg Tablet] 1 tab PO Q6H #20 tablet MDD 4 tabs 03/21/17 Acetaminophen Oral Solution [Tylenol 160mg/5mL Oral Solution -] 640 mg PO Q6H PRN #120 ml 04/05/17 Ibuprofen Oral Suspension [Motrin Oral Suspension -] 400 - 600 mg PO Q6H PRN # 240 ml 04/05/17 Review of Systems - Review of Systems Constitutional: reports: No Symptoms Eyes: reports: No Symptoms Cardiovascular: reports: No Symptoms Respiratory: reports: No Symptoms Gastrointestinal: reports: Abdominal Pain Genitourinary: reports: No Symptoms Musculoskeletal: reports: No Symptoms Integumentary: reports: No Symptoms Neurological: reports: No Symptoms Endocrine: reports: No Symptoms Hematology/Lymphatic: reports: No Symptoms Physical Exam Vital Signs: Vital Signs Temperature 98.1 F 04/05/17 09:00 Pulse Rate 60 04/05/17 09:00 Respiratory Rate 20 04/05/17 10:00 Blood Pressure 140/90 04/05/17 09:00 O2 Sat by Pulse Oximetry (%) 98 04/05/17 10:00 Constitutional: Yes: Well Nourished, Calm, Mild Distress Cardiovascular: Yes: Regular Rate and Rhythm Respiratory: Yes: Regular, CTA Bilaterally Gastrointestinal: Yes: Soft Musculoskeletal: Yes: WNL Extremities: Yes: WNL Wound/Incision: Yes: Clean/Dry Neurological: Yes: Alert Psychiatric: Yes: Alert Labs: CBC, BMP 04/05/17 06:00 04/05/17 06:00 Imaging - Results Ultrasound: Report Reviewed, Image Reviewed Assessment/Plan Problem List - Problems (1) Biliary colic Code(s): K80.50 - CALCULUS OF BILE DUCT W/O CHOLANGITIS OR CHOLECYST W/O OBST (2) Cholecystitis Code(s): K81.9 - CHOLECYSTITIS, UNSPECIFIED patient post op on iv abx plan continue iv abx for now once patient starts eating then we will stop it if no fever
[2017-04-05] MEDS ORDERED: LIDOCAINE HCL 1%, 10 MG/ML (20ML VIAL) INF ONE ×3 (14:17)
[2017-04-05] MEDS ORDERED: BUPIVACAINE HCL/PF 0.5% (5MG/ML) 10 ML VIAL IJ ONE ×3 (14:17)
[2017-04-05] MEDS ORDERED: NEOSTIGMINE METHYLSULFATE 0.5 MG/ML - 10 ML MDV ONE (14:24)
[2017-04-05] MEDS ORDERED: GLYCOPYRROLATE 0.2 MG/1 ML VIAL ONE (14:24)
--- NOTE | 2017-04-05 15:04 | OP ---
Operative Note - Note: Operative Date: 04/05/17 Pre-Operative Diagnosis: biliary colic with chronic cholecystitis Operation: laparoscopic cholecystectomy Findings: distended gallbladder decompressed of 20ml bile to enable grasping; critical view identified Post-Operative Diagnosis: Same as Pre-op Surgeon: Douglas [employer] Teacher: Chon Burgos (Rachid Bergman) Anesthesiologist/FACING BASTER: Susu Leblanc (larisa Bansal) Anesthesia: General, Local (20ml 1% lidocaine + 0.5% marcaine) Specimens Removed: gallbladder to pathology Estimated Blood Loss (mls): 3 Fluid Volume Replaced (mls): 1,000 (crystalloid) Operative Report Dictated: Yes
[2017-04-05] MEDS ORDERED: HYDROmorphone HCL CARPU-JECT 2 MG/1 ML DISP.SYRIN ONE (15:10)
[2017-04-05] MEDS: HYDROmorphone HCL CARPU-JECT 1 MG/1 ML DISP.SYRIN IVPUSH PRN ×4 (15:10→15:35)
[2017-04-05] MEDS ORDERED: LACTATED RINGERS SOLUTION 1,000 ML IV SCH (15:15)
[2017-04-05] MEDS ORDERED: HYDROmorphone HCL CARPU-JECT 1 MG/1 ML DISP.SYRIN IVPB PRN ×2 (15:29→16:05)
[2017-04-05] MEDS ORDERED: ACETAMINOPHEN 650 MG/20.3 ML ORAL SOLUTION (CUPS) PO PRN ×2 (15:34→21:00)
[2017-04-05] MEDS: KETOROLAC TROMETHAMINE 30 MG/1 ML VIAL IVPUSH ONE ×2 (15:35→19:21)
[2017-04-05] MEDS ORDERED: D5-1/2NS+20 MEQ KCL - 1,000 ML IV SCH (16:05)
[2017-04-05] MEDS ORDERED: ONDANSETRON 4 MG/2 ML VIAL IVPB PRN (16:05)
--- NOTE | 2017-04-05 16:50 | PN ---
Progress Note, Physician History of Present Illness: pain at the surgery site - Current Medication List Current Medications: Active Medications Acetaminophen (Tylenol Oral Solution -) 650 mg PO Q6H PRN PRN Reason: FEVER OR PAIN Acetaminophen/Codeine Phosphate (Tylenol W/Codeine Oral Solution -) 15 ml PO Q6H PRN PRN Reason: SEVERE PAIN Hydromorphone HCl (Dilaudid Injection -) 0.5 mg IVPB Q3H PRN PRN Reason: SEVERE PAIN Stop: 04/06/17 06:00 Piperacillin Sod/Tazobactam (Sod 3.375 gm/ Dextrose) 50 mls @ 100 mls/hr IVPB Q8H-IV SIDRA Potassium Chloride/Dextrose/Sod Cl (D5-1/2ns+20 Meq Kcl -) 1,000 mls @ 83 mls/ hr IV ASDIR SIDRA Piperacillin Sod/Tazobactam (Sod 3.375 gm/ Dextrose) 50 mls @ 100 mls/hr IVPB Q8H-IV SIDRA Stop: 04/06/17 10:29 Ibuprofen (Motrin Oral Suspension -) 600 mg PO Q6H PRN PRN Reason: PAIN Ondansetron HCl (Zofran Injection) 4 mg IVPB Q4H PRN PRN Reason: NAUSEA AND/OR VOMITING - Objective Vital Signs: Vital Signs Temperature 98 F 04/05/17 16:20 Pulse Rate 70 04/05/17 16:20 Respiratory Rate 18 04/05/17 16:20 Blood Pressure 111/76 04/05/17 16:20 O2 Sat by Pulse Oximetry (%) 98 04/05/17 16:10 Constitutional: Yes: No Distress HENT: Yes: Atraumatic Neck: Yes: Supple Cardiovascular: Yes: Regular Rate and Rhythm Respiratory: Yes: CTA Bilaterally Gastrointestinal: Yes: Normal Bowel Sounds, Tenderness (at the surgery site) Extremities: Yes: WNL Neurological: Yes: Alert, Oriented Labs: CBC, BMP 04/05/17 06:00 04/05/17 06:00 INR, PTT INR 1.11 (0.82-1.09) 04/05/17 06:00 Problem List - Problems (1) Biliary colic Assessment/Plan: s/p cholecystectomy on bariatric diet schedule will continue iv abx until dc dc tomorrow if stable Code(s): K80.50 - CALCULUS OF BILE DUCT W/O CHOLANGITIS OR CHOLECYST W/O OBST (2) Cholecystitis Assessment/Plan: s/p surgery Code(s): K81.9 - CHOLECYSTITIS, UNSPECIFIED
[2017-04-05] MEDS ORDERED: ACETAMINOPHEN W/ CODEINE LIQ 5 ML CUP PO PRN ×2 (17:00→23:00)
--- NOTE | 2017-04-05 17:26 | OP ---
DATE OF OPERATION: 04/05/2017 PREOPERATIVE DIAGNOSIS: Biliary colic with chronic cholecystitis. POSTOPERATIVE DIAGNOSIS: Biliary colic with chronic cholecystitis. PROCEDURE: Laparoscopic cholecystectomy. SURGEON: Douglas Schultz MD MOLDED GR[employer]S INSPECTOR: Chon Burgos MD, but KAREL Marquez, started the procedure with me. Dr. Burgos scrubbed him out when he arrived. ANESTHESIA: General endotracheal and local (20 mL of 1% lidocaine plus 0.5% Marcaine). ESTIMATED BLOOD LOSS: 3 mL FLUIDS: 1 L of crystalloid. SPECIMEN: Gallbladder to Pathology. FINDINGS: Distended gallbladder which was decompressed of 20 mL of bile to enable grasping and a critical view was identified. DISPOSITION: Stable and extubated to PACU. INDICATIONS FOR PROCEDURE: The patient is a 41-year-old female with a history of hypertension and hyperlipidemia, who had a laparoscopic sleeve gastrectomy 3 months prior, has lost 26 pounds, and is no longer needing medication for her hypertension or her hyperlipidemia, who was seen in the emergency room 2 weeks prior for acute epigastric and right upper quadrant abdominal pain radiating to her back, associated with headache and nausea. At that visit, she had an ultrasound suggestive of acute cholecystitis but normal white count and LFTs and was discharged home, apparently partly at her request, with a referral to a surgeon, but returned 2 weeks later with recurrent symptoms associated with chills as well and some diarrhea. Her ultrasound was repeated in the emergency room, which did not show evidence of acute cholecystitis. Her white count and LFTs were now normal, but she was, in fact, tender in the right upper quadrant with some nausea and chills and has been admitted to Medicine for biliary colic with chronic cholecystitis and started on antibiotics in anticipation of laparoscopic , possible open cholecystectomy. Risks, benefits, and alternatives of this procedure have been discussed with the patient including, but not limited to, bleeding, infection, injury to nearby structures, bile duct injury, need for further procedures, and the alternatives of delayed or no surgery including the risk of recurrence of cholecystitis, pancreatitis, cholangitis, sepsis, or need for urgent procedure. The patient does wish to proceed and has signed informed consent for this operation. She has been receiving treatment antibiotics for at least 4 doses on the floor, and thus, they are not repeated in the operating room. OPERATIVE TECHNIQUE: The patient is brought to the operating room and laid supine on the operating table. Sequential compression devices are applied to bilateral lower extremities. After induction and intubation by Anesthesia, the patient's abdomen is prepped and draped in sterile fashion, and a small transverse supraumbilical incision is made just below her previous incision with a scalpel and carried into subcutaneous tissues with electrocautery until the abdominal wall fascia was identified, scored in the midline, and elevated with Raymond clamps. The peritoneum was entered with the tip of a clamp and a fingertip used to ensure entry into the abdominal cavity and the absence of any underlying adhesions. A figure-of-8 stay suture of 0 Vicryl was then placed in the fascia for later closure, and the Orlando trocar introduced directly into the abdominal cavity and secured in place with the balloon. The abdomen was insufflated with carbon dioxide, and a laparoscope inserted to inspect the abdominal cavity. The gallbladder was immediately visible, was noted to be rather distended and nearly tense. An additional 5-mm port was placed in the subxiphoid area under direct vision and a grasper used to confirm that the gallbladder would be quite difficult to grasp without decompression. Two additional 5-mm ports were placed in the right upper quadrant, also under direct vision and these used to stabilize the gallbladder while a decompression needle was introduced through the subxiphoid port and used to decompress 20 mL of antionette-brown bile. After which, 1 of the graspers was used to carefully grasp the fundus and close the decompression hole and elevate the gallbladder over the liver bed. The other grasper was used to grasp the infundibulum of the gallbladder after a few thin omental adhesions were carefully peeled down off of the gallbladder itself, and retract it laterally. KAREL Marquez, was an tiler's assistant during this part of the procedure and was instrumental in entry into the abdominal cavity as well as helping manipulate and retract the gallbladder. A Maryland dissector was then used at the base of the gallbladder to begin dissecting the peritoneum away from the basal structures. The cystic duct was readily apparent and was isolated carefully with the Maryland dissector, as well as the cystic artery, which was also clearly visualized just medially and behind the cystic duct. Once both structures had been clearly isolated, including the cystic duct from both medial and lateral views (the critical view) as the only structure clearly entering the gallbladder, the cystic duct was clipped two proximally and one distally and divided with endoscissors, as was the cystic artery similarly clipped and divided. The hook cautery was then used to begin taking the gallbladder off the liver bed. Dr. Burgos stepped in as tiler's assistant just prior to clipping of these structures and took over for Mr. Bergman and again was instrumental in retracting the gallbladder and facilitating the rest of the operation. With the hook cautery, the gallbladder was ultimately removed completely from the liver bed. Once it was entirely free, it was placed in an Endo Catch bag and retrieved out the umbilical port site with the camera in the subxiphoid location. This was passed off the table as a pathology specimen, and the Orlando trocar and pneumoperitoneum were re-established, and the camera returned to the umbilical port site to inspect the operative field. Graspers were used to elevate the liver carefully. One tiny spot of oozing was cauterized with the hook cautery on the liver bed. The area was irrigated copiously with saline solution and the fluid suctioned with the suction locker room attendant tool. There was no further bleeding noted. The omentum was tucked back up against the liver bed, and the 5-mm ports were all removed under direct vision. The Orlando and camera were then removed from the abdomen, which was exsufflated of carbon dioxide. The stay suture at the fascia was tied to close the defect there, and all port sites were irrigated with saline solution. Hemostasis was achieved in the port sites with electrocautery where needed, and local anesthetic was infiltrated into all port sites for a total of 20 mL as noted. The skin was then closed with 4-0 Vicryl subcuticular sutures, including a running at the umbilical site. Benzoin and Steri-Strips were applied to each incision, and dressings of gauze and Tegaderm placed over these. Counts were correct at the end of the procedure. The patient was then awakened and extubated by Anesthesia, moved back to her stretcher and taken to the recovery room in stable condition, having tolerated the procedure well. Douglas Schultz M.D. [id number] MTDD
[2017-04-05] MEDS ORDERED: IBUPROFEN 100 MG/5 ML UNIT DOSE CUPS PO PRN (22:00)
[2017-04-06] MEDS ORDERED: IBUPROFEN 100 MG/5 ML UNIT DOSE CUPS PO PRN (00:01)
[2017-04-06] MEDS ORDERED: DEXTROSE 5%-WATER - 50 ML IVPB ONE (01:06)
[2017-04-06] MEDS ORDERED: PIPERACILLIN/TAZOBACTAM 3.375 GM VIAL IVPB ONE (01:06)
[2017-04-06] MEDS: PIPERACILLIN/TAZOB 3.375 GM 3.375 GM in DEXTROSE 5%-WATER - 50 ML IVPB SCH ×2 (01:11→11:21)
[2017-04-06 08:19] LABS: BASOPHIL 0.2 % (0-2.0); EOSINOPHIL 0.2 % (0-4.5); MCH 31.1 pg (25.7-33.7); MCHC 33.6 g/dl (32.0-36.0); MEAN CELL VOLUME 92.6 fl (80-96); MEAN PLT VOLUME 8.7 fl (7.5-11.1); NEUTROPHILS 74.4 % (42.8-82.8); PLATELET COUNT 222 K/MM3 (134-434); RDW 12.9 % (11.6-15.6); WHITE BLOOD COUNT 5.8 K/mm3 (4.0-10.0)
[2017-04-06 08:36] LABS: ALBUMIN 3.4 g/dl (3.4-5.0); ANION GAP 7 (8-16); CALCIUM 9.1 mg/dL (8.5-10.1); CO2 29 mmol/L (21-32); GLUCOSE,RANDOM 102 mg/dL (74-106)
[2017-04-06 08:40] LABS: ALK PHOS 67 U/L (45-117); BILIRUBIN,TOTAL 0.4 mg/dL (0.2-1.0); CREATININE 0.6 mg/dL (0.55-1.02); SGOT/AST 49 U/L (15-37); SGPT/ALT 68 U/L (12-78); TOT PROT 6.5 g/dl (6.4-8.2)
--- NOTE | 2017-04-06 11:07 | PN ---
Progress Note (short form) - Note Progress Note: Pt seen and examined in bed. She indicates that she is feeling better, with minimal pain, mostly at the umbilical site and some subxiphoid incisionally. She has not yet needed pain meds this am. She is hungry, and has tolerated food. Had a little nausea, but has not needed meds for it. Had one dose Tyl/ codeine elixir last night. No BM yet, but has voided. Vital Signs Period Temp Pulse Resp BP Sys/Mendoza Pulse Ox Last 24 Hr 97.5 F-98.6 F 53-70 16-20 100-143/47-100 97-99 PE: abdomen soft, nondistended, mildly tender at umbilical and incisional sites , mild RUQ tend without rebound or guarding Dressings c/d/i except one tiny pink spot on RUQ medial dressing CBC,CMP WBC 5.8 K/mm3 (4.0-10.0) 04/06/17 07:05 RBC 3.81 M/mm3 (3.60-5.2) 04/06/17 07:05 Hgb 11.8 GM/dL (10.7-15.3) 04/06/17 07:05 Hct 35.3 % (32.4-45.2) 04/06/17 07:05 MCV 92.6 fl (80-96) 04/06/17 07:05 MCH 31.1 pg (25.7-33.7) 04/06/17 07:05 MCHC 33.6 g/dl (32.0-36.0) 04/06/17 07:05 RDW 12.9 % (11.6-15.6) 04/06/17 07:05 Plt Count 222 K/MM3 (134-434) 04/06/17 07:05 MPV 8.7 fl (7.5-11.1) 04/06/17 07:05 Neutrophils % 74.4 % (42.8-82.8) 04/06/17 07:05 Lymphocytes % 16.9 % (8-40) 04/06/17 07:05 Monocytes % 8.3 % (3.8-10.2) 04/06/17 07:05 Eosinophils % 0.2 % (0-4.5) D 04/06/17 07:05 Basophils % 0.2 % (0-2.0) 04/06/17 07:05 Sodium 142 mmol/L (136-145) 04/06/17 07:05 Potassium 4.5 mmol/L (3.5-5.1) 04/06/17 07:05 Chloride 106 mmol/L (98-107) 04/06/17 07:05 Carbon Dioxide 29 mmol/L (21-32) 04/06/17 07:05 Anion Gap 7 (8-16) L 04/06/17 07:05 BUN 6 mg/dL (7-18) L 04/06/17 07:05 Creatinine 0.6 mg/dL (0.55-1.02) 04/06/17 07:05 Creat Clearance w eGFR > 60 (>60) 04/06/17 07:05 Random Glucose 102 mg/dL (74-106) D 04/06/17 07:05 Calcium 9.1 mg/dL (8.5-10.1) 04/06/17 07:05 Total Bilirubin 0.4 mg/dL (0.2-1.0) D 04/06/17 07:05 AST 49 U/L (15-37) H D 04/06/17 07:05 ALT 68 U/L (12-78) D 04/06/17 07:05 Alkaline Phosphatase 67 U/L (45-117) 04/06/17 07:05 Total Protein 6.5 g/dl (6.4-8.2) 04/06/17 07:05 Albumin 3.4 g/dl (3.4-5.0) 04/06/17 07:05 Total Amylase 53 U/L (25-115) 04/05/17 06:00 Lipase 173 U/L (73-393) 04/05/17 06:00 A/P: POD1 s/p lap swati for chronic cholecystitis and biliary colic doing well adam po, ambulated, voided on oral pain meds prn, non-narcotic from now ok for d/c home with lifting restrictions instructions in d/c plan Pt to call next week for f/u appt with me gave her my card Problem List - Problems (1) Calculus of gallbladder with chronic cholecystitis without obstruction Code(s): K80.10 - CALCULUS OF GALLBLADDER W CHRONIC CHOLECYST W/O OBSTRUCTION (2) Obesity (BMI 30.0-34.9) Code(s): E66.9 - OBESITY, UNSPECIFIED (3) Status post bariatric surgery Code(s): Z98.84 - BARIATRIC SURGERY STATUS (4) Chills Code(s): R68.83 - CHILLS (WITHOUT FEVER)
--- NOTE | 2017-04-06 12:52 | PN ---
Progress Note, Physician History of Present Illness: doing well no issues tolerating liquids - Current Medication List Current Medications: Active Medications Acetaminophen (Tylenol Oral Solution -) 650 mg PO Q6H PRN PRN Reason: FEVER OR PAIN Ibuprofen (Motrin Oral Suspension -) 600 mg PO Q6H PRN PRN Reason: PAIN Ondansetron HCl (Zofran Injection) 4 mg IVPB Q4H PRN PRN Reason: NAUSEA AND/OR VOMITING - Objective Vital Signs: Vital Signs Temperature 98.6 F 04/06/17 08:40 Pulse Rate 57 L 04/06/17 08:40 Respiratory Rate 18 04/06/17 10:00 Blood Pressure 132/78 04/06/17 08:40 O2 Sat by Pulse Oximetry (%) 97 04/06/17 10:00 Constitutional: Yes: No Distress, Calm Cardiovascular: Yes: Regular Rate and Rhythm Respiratory: Yes: Regular, CTA Bilaterally Gastrointestinal: Yes: Soft Musculoskeletal: Yes: WNL Extremities: Yes: WNL Wound/Incision: Yes: Clean/Dry Neurological: Yes: Alert, Oriented Psychiatric: Yes: Alert, Oriented Labs: CBC, BMP 04/06/17 07:05 04/06/17 07:05 INR, PTT INR 1.11 (0.82-1.09) 04/05/17 06:00 Assessment/Plan Problem List - Problems (1) Biliary colic Code(s): K80.50 - CALCULUS OF BILE DUCT W/O CHOLANGITIS OR CHOLECYST W/O OBST (2) Cholecystitis Code(s): K81.9 - CHOLECYSTITIS, UNSPECIFIED patient post op on iv abx plan can stop all abx rest as per primary team
--- NOTE | 2017-04-06 13:37 | PN ---
Progress Note (short form) - Note Progress Note: Anesthesia POD#1 S/P Laproscopic Cholecystectomy under [facility] VSS,pain is under control,no N/V. Food is advanced. No complications seen.. Sona Andrade MD.
[2017-04-06 14:32] VITALS: BP 121/72; PULSE 66; TEMP 98.4
--- NOTE | 2017-04-06 16:26 | DS ---
Physical Examination Vital Signs: Vital Signs Temperature 98.4 F 04/06/17 14:30 Pulse Rate 66 04/06/17 14:30 Respiratory Rate 18 04/06/17 10:00 Blood Pressure 121/72 04/06/17 14:30 O2 Sat by Pulse Oximetry (%) 97 04/06/17 15:00 Labs: CBC, BMP 04/06/17 07:05 04/06/17 07:05 Discharge Summary Reason For Visit: BILIARY COLIC Current Active Problems Biliary colic (Acute) Calculus of gallbladder with chronic cholecystitis without obstruction (Acute) Chills (Acute) Chronic cholecystitis (Acute) Obesity (BMI 30.0-34.9) (Acute) Status post bariatric surgery (Acute) Unable to eat solid foods (Acute) Condition: Stable - Instructions Diet, Activity, Other Instructions: Postoperative instructions: You had a laparoscopic cholecystectomy on 04/05/[address] Douglas Schultz of [facility]. Activity: Resume your usual activities gradually, but no heavy exertion or lifting more than 10-15 pounds for 1 month. Remove dressings 48 hours after surgery; sticky tapes underneath will fall off by themselves. You may shower daily starting then, just pat the incision areas dry. Eat lightly at first, but advance to your usual bariatric diet as tolerated. Pain: For pain, you may use and alternate liquid Tylenol (acetaminophen) and/or ibuprofen every 6 hours each as needed; this means that you can take one OR the other at 3-hour intervals. If you are prescribed a Tylenol/narcotic combination for severe pain, use it instead of plain Tylenol as needed and switch back when your pain starts decreasing. Do not take more than 4000mg of acetaminophen in a day. Take medications as prescribed or indicated on the labeling. Follow-up: Call Dr. Schultz's office at [phone] to make your postop appointment (Tuesday ~2 weeks after surgery). Clinic is held in the Diagnostic Center on the first floor of [facility]. Call Dr. Schultz's office if you have: * increasing pain not responsive to pain medication * fever of 101F or higher * vomiting * unusual or increasing bleeding or drainage from wounds * increasing redness or swelling at wound sites * inability to urinate Also, see your primary medical doctor within 1-2 weeks. You may call Dr. Juan Antonio Peres for a followup appointment. Follow up with Dr. Colin Mosqueda, your bariatric surgeon, in his office on after 9 am. Referrals: Jaime Peres MD [Staff Physician] - - Home Medications Comprehensive Discharge Medication List: Ambulatory Orders Oxycodone HCl/Acetaminophen [Percocet 5-325 mg Tablet] 1 tab PO Q6H #20 tablet MDD 4 tabs 03/21/17 Acetaminophen Oral Solution [Tylenol 160mg/5mL Oral Solution -] 640 mg PO Q6H PRN #120 ml 04/05/17 Ibuprofen Oral Suspension [Motrin Oral Suspension -] 400 - 600 mg PO Q6H PRN # 240 ml 04/05/17
[2017-04-06] MEDS ORDERED: PIPERACILLIN/TAZOB 3.375 GM 3.375 GM in DEXTROSE 5%-WATER - 50 ML IVPB SCH (18:00)
--- NOTE | 2017-04-07 13:57 | PATH ---
Surgical Pathology Report Patient Name: [facility]ICA [facility]. Rec. #: [id number] /Age/Gender: 1975 (Age: 41) / F Account: [id number] Location: [address] [place] [address]/[facility] Taken: 04/05/2017 Received: 04/06/2017 Reported: 04/07/2017 Physicians: Froylan Patel M.D. Specimen(s) Received GALLBLADDER Clinical History Biliary colic, chronic cholecystitis (recent acute cholecystitis 03/21/17) Final Diagnosis GALLBLADDER, CHOLECYSTECTOMY: CHRONIC CHOLECYSTITIS AND CHOLESTEROLOSIS. Electronically Signed Trung Leon M.D. Gross Description Received in formalin, labeled "gallbladder" is a 9.0 x 4.0 x 2.5 cm gallbladder with a 0.2 cm in length portion of cystic duct attached. The outer surface is aldridge green and varies from smooth to shaggy. The lumen contains green, tenacious bile. No choleliths are identified within the specimen or within the container. The mucosa is aldridge-green with focal gold cholesterol stippling. The wall of the gallbladder is focally edematous, measuring up to 1 cm in thickness. Cryptanalyst sections are submitted in one cassette. [facility]
== END 2017-04-06 21:33 | disposition home or self-care (01) | DRG 263 ==
LOC: JER 10:55 → INTOOBSV 15:10 → UNDOADMOB 15:10 → JERBED 15:10 → J6S 17:26 → OBSVTOIN 04-05 17:00
PROVIDERS: ADMIT Internal Medicine; ATTEND Internal Medicine
PROC: 0FT44ZZ Resection of Gallbladder, Percutaneous Endoscopic Approach (ICD-10-PCS; principal; 2017-04-05 13:00)
DX: K80.44 Calculus of bile duct with chronic cholecystitis without obstruction (principal); I10 Essential (primary) hypertension; E78.5 Hyperlipidemia, unspecified; Z98.84 Bariatric surgery status; E66.9 Obesity, unspecified; R68.83 Chills (without fever); Z68.30 Body mass index [BMI] 30.0-30.9, adult
CPT/HCPCS: 36415; 76705-TC; 80053; 81003; 82150; 83690; 84703; 85025; 85610; 86850; 86900; 86901; 87086; 88304-TC; 93005; 93010; 94760; 99285-25; G0378

== ENCOUNTER 2018-08-16 18:35 | Emergency (ER) | payer SELFPAY ==
--- NOTE | 2018-08-16 18:50 | PDOC ---
Rapid Medical Evaluation Chief Complaint: Eye Problem Time Seen by Provider: 08/16/18 18:49 Medical Evaluation: Allergies Allergy/AdvReac Type Severity Reaction Status Date / Time No Known Allergies Allergy Verified 04/04/17 11:17 08/16/18 18:49 I performed a brief in-person evaluation of this patient. Chief complaint is: Left periorbital "burning" pain with intermittent blurred vision, high BP at home. Pertinent physical exam findings include: PERRL, EOMI, no focal neurologic deficits. BP 175/110, 175/102 on repeat. I have ordered the following: Basic labs. Patient will proceed to the ED for further evaluation. Discharge Disposition - Diagnosis Left eye pain Hypertension Qualifiers: Hypertension type: unspecified Qualified Code(s): I10 - Essential (primary) hypertension - Discharge Dispostion Condition at time of disposition: Stable - Referrals - Patient Instructions - Post Discharge Activity
[2018-08-16 18:53] VITALS: PULSE 89; TEMP 98.1; BMI 27.4
[2018-08-16 20:17] LABS: BASO % 0.4 % (0-2.0); EOS % 1.3 % (0-4.5); HEMATOCRIT 39.6 % (32.4-45.2); HEMOGLOBIN 13.5 GM/dL (10.7-15.3); LYMPH % 37.2 % (8-40); MCH 31.7 pg (25.7-33.7); MEAN CELL VOLUME 93.3 fl (80-96); MEAN PLT VOLUME 8.5 fl (7.5-11.1); MONO % 7.3 % (3.8-10.2); NEUT % 53.8 % (42.8-82.8); PLATELET COUNT 299 K/MM3 (134-434); RBC 4.24 M/mm3 (3.60-5.2); RDW 12.5 % (11.6-15.6); WHITE BLOOD COUNT 5.5 K/mm3 (4.0-10.0)
[2018-08-16 20:54] LABS: ALBUMIN 4.2 g/dl (3.4-5.0); ALK PHOS 103 U/L (45-117); ANION GAP 7 MMOL/L (8-16); BILIRUBIN,TOTAL 0.3 mg/dL (0.2-1); BLOOD UREA NITROGEN 15 mg/dL (7-18); CALCIUM 8.8 mg/dL (8.5-10.1); CHLORIDE 106 mmol/L (98-107); CO2 29 mmol/L (21-32); CREATININE 0.6 mg/dL (0.55-1.3); GLUCOSE,RANDOM 79 mg/dL (74-106); POTASSIUM 4.2 mmol/L (3.5-5.1); SGOT/AST 24 U/L (15-37); SGPT/ALT 43 U/L (13-61); SODIUM 142 mmol/L (136-145); TOT PROT 7.9 g/dl (6.4-8.2)
[2018-08-16 21:12] LABS: URINE APPEARANCE CLEAR; URINE BILIRUBIN NEGATIVE (<2.0 mg/dL); URINE COLOR STRAW; URINE GLUCOSE (UA) NEGATIVE (NEGATIVE); URINE KETONE NEGATIVE (NEGATIVE); URINE LEUK ESTERASE NEGATIVE (NEGATIVE); URINE NITRITE NEGATIVE (NEGATIVE); URINE PROTEIN NEGATIVE (NEGATIVE); URINE UROBILINOGEN NEGATIVE mg/dL (0.2-1.0)
[2018-08-16 21:14] LABS: HCG,QUALITATIVE URINE Negative
--- NOTE | 2018-08-16 22:04 | PDOC ---
History of Present Illness - General Chief Complaint: Eye Problem Stated Complaint: EYE PROBLEM Time Seen by Provider: 08/16/18 18:49 - History of Present Illness Initial Comments: 08/16/18 22:01 42-year-old female without comorbidities presents for evaluation of headache and eye pain since 4 days ago. Increasing over the last 3 days to of fulminant headache no visual changes systemic symptoms Past History - Past Medical History Allergies/Adverse Reactions: Allergies Allergy/AdvReac Type Severity Reaction Status Date / Time No Known Allergies Allergy Verified 04/04/17 11:17 Home Medications: Ambulatory Orders NK [No Known Home Medication] 08/16/18 COPD: No HTN: Yes Hypercholesterolemia: Yes - Surgical History Gastric Stapling: Yes (Gastric bypass) - Immunization History Immunization Up to Date: Yes - Suicide/Smoking/Psychosocial Hx Smoking History: Never smoked Have you smoked in the past 12 months: No Information on smoking cessation initiated: No Hx Alcohol Use: No Drug/Substance Use Hx: No Substance Use Type: None Review of Systems - Review of Systems HEENTM: Yes: Ear Pain Neurological: Yes: Headache *Physical Exam - Vital Signs Last Vital Signs Temp Pulse Resp BP Pulse Ox 98.1 F 89 18 175/102 H 100 08/16/18 18:47 08/16/18 18:47 08/16/18 18:47 08/16/18 18:47 08/16/18 18:47 - Physical Exam Comments: 08/16/18 22:01 HEAD: NC/AT EYES: Conjuntiva clear MS: Full ROM in all joints without edema NEUROLOGIC: No gross sensory or motor deficits, NVID SKIN: Normal color and temperature no lesions or rashes Moderate Sedation - Procedure Monitoring Vital Signs: Procedure Monitoring Vital Signs Temperature 98.1 F 08/16/18 18:47 Pulse Rate 89 08/16/18 18:47 Respiratory Rate 18 08/16/18 18:47 Blood Pressure 175/102 H 08/16/18 18:47 O2 Sat by Pulse Oximetry (%) 100 08/16/18 18:47 ED Treatment Course - LABORATORY CBC & Chemistry Diagram: 08/16/18 19:51 08/16/18 19:51 - ADDITIONAL ORDERS Additional order review: Laboratory Results 08/16/18 08/16/18 21:00 19:51 Sodium 142 Potassium 4.2 Chloride 106 Carbon Dioxide 29 Anion Gap 7 L BUN 15 Creatinine 0.6 Creat Clearance w eGFR > 60 Random Glucose 79 Calcium 8.8 Total Bilirubin 0.3 AST 24 ALT 43 Alkaline Phosphatase 103 Total Protein 7.9 Albumin 4.2 Urine Color Straw Urine Appearance Clear Urine pH 6.0 Ur Specific [place] 1.014 Urine Protein Negative Urine Glucose (UA) Negative Urine Ketones Negative Urine Blood Negative Urine Nitrite Negative Urine Bilirubin Negative Urine Urobilinogen Negative Ur Leukocyte Esterase Negative Urine HCG, Qual Negative 08/16/18 19:51 RBC 4.24 MCV 93.3 MCHC 34.0 RDW 12.5 MPV 8.5 Neutrophils % 53.8 D Lymphocytes % 37.2 D Monocytes % 7.3 Eosinophils % 1.3 D Basophils % 0.4 - RADIOLOGY Radiology Studies Ordered: Category Date Time Status HEAD CT WITHOUT CONTRAST [CT] Stat CT Scan 08/16/18 21:56 Ordered Medical Decision Making - Medical Decision Making 08/16/18 21:59 166/110 blood pressure with symptomatic SPENCE when pt brought back to fast track 08/16/18 22:02 pt transfered to main ER for further work up *DC/Admit/Observation/Transfer Diagnosis at time of Disposition: Left eye pain Hypertension Qualifiers: Hypertension type: unspecified Qualified Code(s): I10 - Essential (primary) hypertension - Discharge Dispostion Condition at time of disposition: Stable - Referrals - Patient Instructions - Post Discharge Activity
[2018-08-16 22:06] VITALS: BP 166/110
[2018-08-16] MEDS ORDERED: LABETALOL HCL 100 MG TABLET (FP) PO ONE (22:08)
--- NOTE | 2018-08-16 22:12 | PDOC ---
*Physical Exam - Vital Signs Last Vital Signs Temp Pulse Resp BP Pulse Ox 98.1 F 89 18 166/110 H 100 08/16/18 18:47 08/16/18 18:47 08/16/18 18:47 08/16/18 22:05 08/16/18 18:47 - Physical Exam General Appearance: Yes: Appropriately Dressed. No: Apparent Distress HEENT: positive: Normal ENT Inspection, Normal Voice, TMs Normal, Pharynx Normal. negative: Photophobia Neck: positive: Trachea midline Respiratory/Chest: positive: Lungs Clear, Normal Breath Sounds. negative: Respiratory Distress, Accessory Muscle Use Cardiovascular: positive: Regular Rhythm, Regular Rate. negative: Murmur Neurologic: positive: clinical product manager II-XII NML intact, Alert, Normal Response, Motor Strength 11/26 ED Treatment Course - LABORATORY CBC & Chemistry Diagram: 08/16/18 19:51 08/16/18 19:51 - ADDITIONAL ORDERS Additional order review: Laboratory Results 08/16/18 08/16/18 21:00 19:51 Sodium 142 Potassium 4.2 Chloride 106 Carbon Dioxide 29 Anion Gap 7 L BUN 15 Creatinine 0.6 Creat Clearance w eGFR > 60 Random Glucose 79 Calcium 8.8 Total Bilirubin 0.3 AST 24 ALT 43 Alkaline Phosphatase 103 Total Protein 7.9 Albumin 4.2 Urine Color Straw Urine Appearance Clear Urine pH 6.0 Ur Specific [place] 1.014 Urine Protein Negative Urine Glucose (UA) Negative Urine Ketones Negative Urine Blood Negative Urine Nitrite Negative Urine Bilirubin Negative Urine Urobilinogen Negative Ur Leukocyte Esterase Negative Urine HCG, Qual Negative 08/16/18 19:51 RBC 4.24 MCV 93.3 MCHC 34.0 RDW 12.5 MPV 8.5 Neutrophils % 53.8 D Lymphocytes % 37.2 D Monocytes % 7.3 Eosinophils % 1.3 D Basophils % 0.4 Progress Note - Progress Note Progress Note: Received sign out from KAREL Moreno. Briefly this is a 42-year-old woman presents with left I pain and headache is worsened over the past 3 days. Patient noted elevated blood pressure at home was found to have a blood pressure of 175/102 in triage. Repeat blood pressure testing 166/110. Patient has received 50 mg of labetalol orally. Laboratory testing is unremarkable. Patient is currently pending CAT scan of her head. Medical Decision Making - Medical Decision Making 08/16/18 23:35 CT as read by Dr. Ledbetter: No evidence of a focal cranial lesion or hemorrhage seen. Correlate clinically to determine further evaluation and follow-up. Patient currently rates her pain 7/10. Optic disc within normal limits and normal fundal exam is noted. Repeat blood pressure is currently 138/84. Motrin 600 mg orally now Reassess *DC/Admit/Observation/Transfer Diagnosis at time of Disposition: Headache above the eye region Hypertension Qualifiers: Hypertension type: unspecified Qualified Code(s): I10 - Essential (primary) hypertension - Discharge Dispostion Disposition: HOME Condition at time of disposition: Stable Decision to Admit order: No - Referrals - Patient Instructions Additional Instructions: Keep her appointment with your doctor on Tuesday. Take Tylenol or Motrin for headaches. Return to emergency department for any worsening or concerning symptoms. - Post Discharge Activity
[2018-08-16] MEDS ORDERED: IBUPROFEN 600 MG TABLET (FP) PO ONE (23:27)
[2018-08-17] MEDS ORDERED: IBUPROFEN 600 MG TABLET (FP) PO ONE (00:17)
[2018-08-17] MEDS ORDERED: LORATADINE 10 MG TABLET ONE (02:23)
== END 2018-08-17 02:01 | disposition home or self-care (01) ==
LOC: JER 18:35
DX: H57.10 Ocular pain, unspecified eye (principal); I10 Essential (primary) hypertension; Z98.84 Bariatric surgery status
CPT/HCPCS: 36415; 70450-TC; 80053; 81003; 84703; 85025; 99282-25

== ENCOUNTER 2018-08-27 17:56 | Emergency (ER) | payer SELFPAY | END 2018-08-27 22:10 | disposition home or self-care (01) | LOC: JER 17:56 ==